=== PATIENT | male | born 1990 | race Caucasian/White ===

== ENCOUNTER → 2020-06-26 16:28 | Outpatient (BNVA) | payer SELFPAY | PROVIDERS: Family Provider Internal Medicine; PCP Internal Medicine; Visit Provider Internal Medicine | DX: G72.3 Periodic paralysis (principal) | CPT/HCPCS: 80053 ==

== ENCOUNTER → 2021-03-05 13:19 | Outpatient (BNVA) | payer OTHER, SELFPAY | PROVIDERS: Family Provider Internal Medicine; PCP Internal Medicine; Visit Provider Nurse Practitioner Family | DX: R11.2 Nausea with vomiting, unspecified (principal); A08.4 Viral intestinal infection, unspecified | CPT/HCPCS: 80053; 81000; 85025 ==

== ENCOUNTER 2022-05-19 15:08 | Inpatient (IN) | payer OTHER, SELFPAY ==
[2022-05-19] VITALS (7 sets, daily range): BP systolic 118–132; BP diastolic 65–86; PULSE 82–105; RESP 16–20; TEMP 37.2–37.4; O2SAT 92–97; BMI 23.6
[2022-05-19 17:16] LABS: Add Urine Microscopic? NO; Charge for UA Resulting for Rev
[2022-05-19 17:29] LABS: Bilirubin Urine Neg (Negative); Blood Urine Neg (Negative); Glucose Urine UA Norm (Normal); Ketones Urine Negative (Negative); Nitrate Urine Negative (Negative); Protein Urine Neg (Negative); Urine Appearance Clear (CLEAR); Urine Color Dark Yellow (Yellow); Urobilinogen Urine 1 mg/dL (Negative); pH Urine 8 (5-7)
[2022-05-19 17:30] LABS: Leukocyte Esterase Urine Negative (Negative)
[2022-05-19 17:45] LABS: Basophils # 0.1 10^3/uL (0.0-0.1); Basophils % 0.3 %; Eosinophils # 0.1 10^3/uL (0.0-0.8); Eosinophils % 0.3 %; Hematocrit 44.2 % (42.0-52.0); Hemoglobin 15.1 g/dL (11.7-16.6); Lymphocytes # 1.1 10^3/uL (0.8-4.8); Lymphocytes % 5.8 %; Mean Corpuscular HGB Conc 34.2 g/dL (30.0-36.0); Mean Corpuscular Hemoglobin 30.8 pg (28.0-34.0); Mean Platelet Volume 10.3 fL (7.4-10.4); Monocytes # 0.7 10^3/uL (0.2-0.9); Monocytes % 3.9 %; Neutrophils # 16.13 10^3/uL (1.8-7.7); Neutrophils % 88.9 %; Nucleated Red Blood Cells % 0 %; Platelet Count 239 10^3/cmm (130-400); Red Blood Count 4.91 10^6/uL (4.1-5.3); Red Cell Distribution Width 13.1 % (12.1-15.1); White Blood Count 18.2 10^3/uL (4.0-10.0)
[2022-05-19 18:07] LABS: Alanine Aminotransferase 16 U/L (0-41); Albumin Level 3.9 g/dL (3.5-5.2); Alkaline Phosphatase 87 U/L (40-130); Anion Gap 14.2 (5-19); Aspartate Amino Transferase 20 U/L (0-40); Blood Urea Nitrogen 18 mg/dL (6-20); C Reactive Protein 54.8 mg/L (0.0-4.9); Calcium 8.9 mg/dL (8.5-10.5); Carbon Dioxide 19 mmol/L (22-29); Chloride 100 mmol/L (98-107); Globulin 3.2 g/dL (1.3-4.6); Glomerular Filtration Rate 129.9 mL/min (90-130); Glucose 160 mg/dL (65-115); Lipase 27 U/L (13-60); Osmolality Calculated 275 mOsm/kg (285-295); Potassium 3.2 mmol/L (3.5-5.1); Sodium 130 mmol/L (136-145); Total Protein 7.1 g/dL (6.6-8.7)
--- NOTE | 2022-05-19 18:13 | CTR_ITS ---
PROCEDURE INFORMATION: Exam: CT Abdomen And Pelvis With Contrast Exam date and time: 05/19/2022 6:56 PM Age: 31 years old Clinical indication: Abdominal pain; Generalized; Additional info: Abd pain TECHNIQUE: Imaging protocol: Computed tomography of the abdomen and pelvis with contrast. Radiation optimization: All CT scans at this facility use at least one of these dose optimization techniques: automated exposure control; mA and/or kV adjustment per patient size (includes targeted exams where dose is matched to clinical indication); or iterative reconstruction. Contrast material: OMNI 350; Contrast volume: 100 ml; Contrast route: INTRAVENOUS (IV); COMPARISON: CT abdomen pelvis w con* [id number] 10/30/2018 10:56 AM RADIATION DOSE METRICS: Total DLP (mGy-cm): 393.73 FINDINGS: Liver: 9 mm low-density left hepatic lobe lesion is similar to the prior study. This cannot be further characterized on this study. Gallbladder and bile ducts: Normal. No calcified stones. No ductal dilation. Pancreas: Normal. No ductal dilation. Spleen: Normal. No splenomegaly. Adrenal glands: Normal. No mass. Kidneys and ureters: There is a sub cm cyst with benign features in the right kidney. Follow-up is not necessary. Stomach and bowel: There is mucosal thickening of the distal ileum and rectosigmoid colon with associated mesenteric inflammatory stranding. There are peripherally enhancing complex fluid collections along the left and right lateral aspects of the sigmoid mucosa measuring 16 mm and 14 mm respectively in the craniocaudad dimensions. A peripherally enhancing fluid collection is present posterior to the distal ileum measuring 3.3 by 2.3 cm. These are concerning for abscess formations. Appendix: No evidence of appendicitis. Intraperitoneal space: See Stomach and bowel finding. Vasculature: Unremarkable. No abdominal aortic aneurysm. Lymph nodes: Unremarkable. No enlarged lymph nodes. Urinary bladder: Unremarkable as visualized. Reproductive: Unremarkable as visualized. Bones/joints: Unremarkable. No acute fracture. Soft tissues: Unremarkable. CT/CT abdomen pelvis w con* [id number] IMPRESSION: 1. There is mucosal thickening of the distal ileum and rectosigmoid colon with associated mesenteric inflammatory stranding consistent with a nonspecific enteritis. Crohn's disease is the top differential given the sites of mucosal thickening. 2. Peripherally enhancing complex fluid collections along the left and right lateral aspects of the sigmoid mucosa and posterior to the distal ileum raise concern for abscess formations. COMMENTS: Consistent with the [employer]'s Incidental Findings Committee white paper (J Am Odalis Radiol 2018): Any incidental renal lesion less than 1 cm or classified as too small to characterize, or any incidental cystic renal lesion characterized as simple-appearing, is likely benign. No follow-up imaging is recommended for these lesions per consensus recommendations based on imaging criteria.
[2022-05-19] MEDS: potassium chloride ER 20 mEq Tablet 40 MEQ PO (18:20)
[2022-05-19] MEDS: morphine 4 mg/mL SDV 1 mL IVP (18:20)
[2022-05-19] MEDS: ondansetron 2 mg/ML SDV 2 mL 4 MG IVP (18:20)
[2022-05-19] MEDS: sodium chloride 0.9% 1,000 ML 999 ML IV (18:25)
--- NOTE | 2022-05-19 18:40 | ED_ITS ---
HPI - Abdominal Pain General: Chief Complaint: Abdominal Pain Stated Complaint: UC sent for stomach flare up Time Seen by Provider: 05/19/22 18:07 Source: patient History of Present Illness: 31-year-old male with a history of diverticulitis. He notes that around 11 PM last night, he started to get left lower quadrant belly pain. It worsened today despite warm baths, and pain medication. He has had some diarrhea. No blood in the stool. He had a temperature at urgent care. MD elicited complaint: abdominal pain Pertinent past history: other Pain Consistency: constant Location: LLQ Severity: moderate Radiation: none Migration to: no migration Relieving factors: nothing Associated Symptoms: Reports change in stool character, diarrhea, fever(s) and nausea; Denies constipation, dysuria, hematuria and vomiting Review of Systems Const: Reports: fever(s) Eyes: Denies: change in vision Card: Denies: chest pain or palpitations Resp: Denies: dyspnea, productive cough, non-productive cough or wheezing GI: Reports: nausea, diarrhea and change in stool character; Denies: vomiting or constipation : Denies: dysuria or hematuria Skin/Breast: Denies: rash Neuro: Denies: headache(s), weakness in extremities, dizziness or confusion PFSH ED PFSH: Medical History Hypokalemic periodic paralysis Family History Grandmother Diabetes Cancer Father Heart disease Mother Heart disease Social History Smoking and tobacco status: current every day smoker (vape) e-cigarettes E- Cigarette Details: vaporizer device and with nicotine E-cig/vape details: approx 9 months and smokeless tobacco Smokeless tobacco details: can per week x 10 yrs Second hand smoke exposure: No Alcohol intake: current Alcohol intake frequency: few times a month Alcohol type: hard liquor Lives independently: No Household members: family Marital status: Number of children: 2 service: No Current occupational status: employed Current occupation: [employer] History of recent travel: No Current gender identity: Male Special gem needs: No Agree to transfusion: Yes Physical Exam Const: COMMON NORMALS: no acute distress GENERAL APPEARANCE: cooperative; not ill appearing and not frail appearing HENMT: COMMON NORMALS: normocephalic, atraumatic and Normal external nose present HEAD & SCALP: normocephalic and atraumatic FACE & SINUS: normal facial exam and face symmetric NOSE: Normal external nose present Eye: COMMON NORMALS: Equal, round and reactive pupils present and EOMs intact bilaterally PUPIL: Yes Equal, round and reactive pupils present Neck/C-Spine: GENERAL: Yes trachea midline Chest: CHEST: Yes Symmetrical chest wall rise Resp: COMMON NORMALS: normal respiratory effort, No retractions, No use of accessory muscles and clear to auscultation bilaterally AUSCULTATION: clear to auscultation bilaterally Cardio: COMMON NORMALS: regular rate and regular rhythm RATE: regular rate RHYTHM: regular rhythm GI: COMMON NORMALS: Normal to inspection, nondistended, normoactive bowel sounds present PALPATION: Yes Tenderness to palpation present (GI) Details: LLQ and Yes Guarding due to palpation present (GI) : COMMON NORMALS: Yes no CVA tenderness BLADDER/KIDNEY EXAM: Yes no CVA tenderness Back/Pelvis: COMMON NORMALS: no CVA tenderness Extremity: COMMON NORMALS: no pedal edema Neuro: JOANIE COMA SCALE: document GCS findings [place] coma scale eye opening: Spontaneous Joanie coma scale verbal response: Orientated [place] coma scale motor response: Obey commands Joanie coma scale total score: 15 SENSORY EXAM: Yes extremities (intact) Psych: COMMON NORMALS: speech normal SPEECH: Yes normal speech Skin: COMMON NORMALS: no rashes or lesions noted GENERAL SKIN EXAM: no rashes or lesions noted Course Vital Signs: Vital signs: Vital Signs Temperature 99 F 05/19/22 16:02 Pulse Rate 105 H 05/19/22 19:30 Respiratory Rate 18 05/19/22 19:30 Blood Pressure 129/65 05/19/22 19:30 Pulse Oximetry 97 05/19/22 19:30 Oxygen Delivery Me thod 05/19/22 16:02 MDM - Abdominal Pain Medical Decision Making White blood cell count is 18. Potassium is 3.2 and is repleted. Bicarbonate is 19. He is received IV fluid in the ER. His CT shows mucosal thickening of the distal ileum and rectosigmoid colon. There are peripherally enhancing complex fluid collections along the left and right and lateral aspects of the sigmoid mucosa and posterior to the distal ileum concerning for small abscesses. These are too small for IR intervention. He will be treated medically for now. Hospitalist will see the patient. He has gotten IV Zosyn here. He is normotensive and nontachycardic. Lab Data : 05/19/22 17:26 05/19/22 17:26 Labs/Radiology: Radiology Impressions Abdomen/Pelvis CT 05/19/22 18:13 IMPRESSION: 1. There is mucosal thickening of the distal ileum and rectosigmoid colon with associated mesenteric inflammatory stranding consistent with a nonspecific enteritis. Crohn's disease is the top differential given the sites of mucosal thickening. 2. Peripherally enhancing complex fluid collections along the left and right lateral aspects of the sigmoid mucosa and posterior to the distal ileum raise concern for abscess formations. COMMENTS: Consistent with the [employer]'s Incidental Findings Committee white paper (J Am Odalis Radiol 2018): Any incidental renal lesion less than 1 cm or classified as too small to characterize, or any incidental cystic renal lesion characterized as simple-appearing, is likely benign. No follow-up imaging is recommended for these lesions per consensus recommendations based on imaging criteria. ADDENDUM: 05/19/221947 CRITICAL RESULT: The study was personally discussed on the telephone with ANASTASIIA Slater on 05/19/2022 7:46 PM CDT. The results were understood and acknowledged. Laboratory Results WBC 18.2 10^3/uL (4.0-10.0) H 05/19/22 17: RBC 4.91 10^6/uL (4.1-5.3) 05/19/22 17: Hgb 15.1 g/dL (11.7-16.6) 05/19/22 17: Hct 44.2 % (42.0-52.0) 05/19/22 17: MCV 90.0 fl (80-94) 05/19/22 17: MCH 30.8 pg (28.0-34.0) 05/19/22 17: MCHC 34.2 g/dL (30.0-36.0) 05/19/22 17: RDW 13.1 % (12.1-15.1) 05/19/22 17: Plt Count 239 10^3/cmm (130-400) 05/19/22 17: MPV 10.3 fL (7.4-10.4) 05/19/22 17: Neut % (Auto) 88.9 % 05/19/22 17: Lymph % (Auto) 5.8 % 05/19/22 17: [place] % (Auto) 3.9 % 05/19/22 17: Eos % (Auto) 0.3 % 05/19/22 17: Baso % (Auto) 0.3 % 05/19/22 17: Neut # (Auto) 16.13 10^3/uL (1.8-7.7) H 05/19/22 17: Lymph # (Auto) 1.1 10^3/uL (0.8-4.8) 05/19/22 17: [place] # (Auto) 0.7 10^3/uL (0.2-0.9) 05/19/22 17: Eos # (Auto) 0.1 10^3/uL (0.0-0.8) 05/19/22 17: Baso # (Auto) 0.1 10^3/uL (0.0-0.1) 05/19/22 17: Nucleated RBC % (auto) 0 % 05/19/22 17: Nucleated RBCs # 0.0 /100WBC 05/19/22 17:26 Sodium 130 mmol/L (136-145) L 05/19/22 17:26 Potassium 3.2 mmol/L (3.5-5.1) L 05/19/22 17: Chloride 100 mmol/L (98-107) 05/19/22 17: Carbon Dioxide 19 mmol/L (22-29) L 05/19/22 17:26 Anion Gap 14.2 (5-19) 05/19/22 17:26 BUN 18 mg/dL (6-20) 05/19/22 17: Creatinine 0.7 mg/dL (0.7-1.2) 05/19/22 17: GFR Calculation 129.9 mL/min (90-130) 05/19/22 17:26 Glucose 160 mg/dL (65-115) H 05/19/22 17:26 Calculated Osmolality 275 mOsm/kg (285-295) L 05/19/22 17:26 Calcium 8.9 mg/dL (8.5-10.5) 05/19/22 17:26 Total Bilirubin 1.0 mg/dL (0.15-1.2) 05/19/22 17:26 AST 20 U/L (0-40) 05/19/22 17:26 ALT 16 U/L (0-41) 05/19/22 17:26 Alkaline Phosphatase 87 U/L (40-130) 05/19/22 17:26 C-Reactive Protein 54.8 mg/L (0.0-4.9) H 05/19/22 17:26 Total Protein 7.1 g/dL (6.6-8.7) 05/19/22 17:26 Albumin 3.9 g/dL (3.5-5.2) 05/19/22 17:26 Globulin 3.2 g/dL (1.3-4.6) 05/19/22 17:26 Lipase 27 U/L (13-60) 05/19/22 17:26 Urine Color Dark yellow (Yellow) 05/19/22 17:10 Urine Appearance Clear (CLEAR) 05/19/22 17:10 Urine pH 8 (5-7) H 05/19/22 17:10 Ur Specific [place] 1.010 (1.005-1.030) 05/19/22 17:10 Urine Protein Neg (Negative) 05/19/22 17:10 Urine Glucose (UA) Norm (Normal) 05/19/22 17:10 Urine Ketones Negative (Negative) 05/19/22 17:10 Urine Blood Neg (Negative) 05/19/22 17:10 Urine Nitrate Negative (Negative) 05/19/22 17:10 Urine Bilirubin Neg (Negative) 05/19/22 17:10 Urine Urobilinogen 1 mg/dL (Negative) H 05/19/22 17:10 Ur Leukocyte Esterase Negative (Negative) 05/19/22 17:10 Discharge Plan Discharge Patient Disposition: Admitted As Inpatient Clinical Impression: Colitis, Abscess of sigmoid colon Condition: Fair Coding Level of Care Code ED Wire Chief for Chandnig Fwd Exam Comprehensive
[2022-05-19] MEDS: iohexol 350 mg/mL 100 mL Btl IV (18:59)
[2022-05-19] MEDS: piperacillin-tazobactam 3.375 GM in sodium chloride 0.9% (plus) 50 ML IV (20:22)
--- NOTE | 2022-05-19 21:39 | P.HP_ITS ---
Providers/Chief Complaint Admitting Physician: Gema Peraza MD Primary Care Provider: French Kwan MD Chief Complaint: UC sent for stomach flare up History of Present Illness Trent Marshall is a 31 year old male past medical history of hypokalemic periodic paralysis, presenting today to the emergency room with left lower quadrant abdominal pain that started last night. Initially pain started at 11 PM. No obvious trigger or relieving factors. Noother sick contacts. He has had some associated diarrhea 10-11 episodes. No blood in stools, mucus+. no nausea, vomiting. Reports a past history of diverticulitis 3 years ago. No follow up colonoscopy perfromed,, No family h/o IBD or other inflammatory conditions. Review of Systems General: Reports: 10 or more systems reviewed and unremarkable except in HPI and below Const: Denies: fever(s), chills or body aches Eyes: Denies: change in vision, blurry vision or photophobia ENMT: Reports: hoarseness; Denies: throat pain, enlarged tonsils, odynophagia or nasal congestion Card: Denies: chest pain, palpitations, irregular heart rhythm, edema, swelling of feet/ankles, lightheadedness, pre-syncope, dyspnea on exertion or or thopnea Resp: Denies: dyspnea, productive cough, non-productive cough, wheezing, stridor, pain on inspiration, change in phlegm color, hemoptysis or chest congestion GI: Denies: abdominal pain, nausea, vomiting, hematemesis, coffee ground e mesis, dysphagia, heartburn, diarrhea, constipation, GI cramping, change in stool character, hematochezia or melena : Denies: flank pain, dysuria, urinary frequency, urinary urgency, urinary hesitancy or hematuria Musc: Denies: neck pain, back pain, extremity pain, joint swelling, joint warmth or deformity Neuro: Denies: headache(s), numbness in extremities, weakness in extremities, sensory changes, difficulty walking, frequent falls, dizziness, vertigo, behavioral changes, Slurred speech present or seizure-like activity Psych: Denies: anxiety, depression, suicidal ideation or homicidal ideation Endo: Denies: polyuria, polydipsia, tired all the time, cold intolerance or hot flashes Andre/Lymph: Denies: easy bruising or easy bleeding Medications/Allergies Home Medications Medication Instructions Recorded Confirmed Last Taken Type spironolactone 25 mg tablet 25 mg PO DAILY 05/19/22 05/19/22 05/18/22 History Allergies Allergy/AdvReac Type Severity Reaction Status Date / Time No Known Allergies Allergy Verified 05/19/22 14:09 PFSH Acute PFSH: Medical History Hypokalemic periodic paralysis Family History Grandmother Diabetes Cancer Father Heart disease Mother Heart disease Social History Smoking and tobacco status: current every day smoker (vape) e-cigarettes E- Cigarette Details: vaporizer device and with nicotine E-cig/vape details: approx 9 months and smokeless tobacco Smokeless tobacco details: can per week x 10 yrs Second hand smoke exposure: No Alcohol intake: current Alcohol intake frequency: few times a month Alcohol type: hard liquor Lives independently: No Household members: family Marital status: Number of children: 2 service: No Current occupational status: employed Current occupation: [employer] History of recent travel: No Current gender identity: Male Special gem needs: No Agree to transfusion: Yes Vitals/I&O/Wt Last Vital Signs Temp 99.4 F 05/19/22 20:54 Pulse 86 05/19/22 20:54 Resp 20 H 05/19/22 20:54 BP 118/67 05/19/22 20:54 Pulse Ox 97 05/19/22 20:54 O2 Del Method 05/19/22 20:46 Weight last 48 hrs Weight 64.41 kg Physical Exam Narrative: General: No acute distress, AO x3 HEENT: PERRLA, pupils bilaterally equal and reactive, pallors not present Chest: Normal vesicular breath sounds, no added sounds, equal good air entry bilaterally CVS: S1-S2 regular, no murmurs, no tachycardia, no gallops, no rubs Abdomen: Soft, mildly distended, TTP over LLQ region Neuro: No focal deficits, no facial deformity, AO x3, power 5/5 in all limbs Data : 05/20/22 03:45 05/20/22 03:45 Other Labs: Radiology Impressions Abdomen/Pelvis CT 05/19/22 18:13 IMPRESSION: 1. There is mucosal thickening of the distal ileum and rectosigmoid colon with associated mesenteric inflammatory stranding consistent with a nonspecific enteritis. Crohn's disease is the top differential given the sites of mucosal thickening. 2. Peripherally enhancing complex fluid collections along the left and right lateral aspects of the sigmoid mucosa and posterior to the distal ileum raise concern for abscess formations. COMMENTS: Consistent with the [employer]'s Incidental Findings Committee white paper (J Am Odalis Radiol 2018): Any incidental renal lesion less than 1 cm or classified as too small to characterize, or any incidental cystic renal lesion characterized as simple-appearing, is likely benign. No follow-up imaging is recommended for these lesions per consensus recommendations based on imaging criteria. ADDENDUM: 05/19/221947 CRITICAL RESULT: The study was personally discussed on the telephone with ANASTASIIA Slater on 05/19/2022 7:46 PM CDT. The results were understood and acknowledged. Laboratory Results WBC 18.2 10^3/uL (4.0-10.0) H 05/19/22 17: RBC 4.91 10^6/uL (4.1-5.3) 05/19/22 17:26 Hgb 15.1 g/dL (11.7-16.6) 05/19/22 17:26 Hct 44.2 % (42.0-52.0) 05/19/22 17:26 MCV 90.0 fl (80-94) 05/19/22 17: MCH 30.8 pg (28.0-34.0) 05/19/22 17: MCHC 34.2 g/dL (30.0-36.0) 05/19/22 17:26 RDW 13.1 % (12.1-15.1) 05/19/22 17:26 Plt Count 239 10^3/cmm (130-400) 05/19/22 17: MPV 10.3 fL (7.4-10.4) 05/19/22 17:26 Neut % (Auto) 88.9 % 05/19/22 17: Lymph % (Auto) 5.8 % 05/19/22 17:26 [place] % (Auto) 3.9 % 05/19/22 17:26 Eos % (Auto) 0.3 % 05/19/22 17:26 Baso % (Auto) 0.3 % 05/19/22 17:26 Neut # (Auto) 16.13 10^3/uL (1.8-7.7) H 05/19/22 17:26 Lymph # (Auto) 1.1 10^3/uL (0.8-4.8) 05/19/22 17:26 [place] # (Auto) 0.7 10^3/uL (0.2-0.9) 05/19/22 17:26 Eos # (Auto) 0.1 10^3/uL (0.0-0.8) 05/19/22 17:26 Baso # (Auto) 0.1 10^3/uL (0.0-0.1) 05/19/22 17: Nucleated RBC % (auto) 0 % 05/19/22 17: Nucleated RBCs # 0.0 /100WBC 05/19/22 17:26 Sodium 130 mmol/L (136-145) L 05/19/22 17:26 Potassium 3.2 mmol/L (3.5-5.1) L 05/19/22 17:26 Chloride 100 mmol/L (98-107) 05/19/22 17:26 Carbon Dioxide 19 mmol/L (22-29) L 05/19/22 17:26 Anion Gap 14.2 (5-19) 05/19/22 17:26 BUN 18 mg/dL (6-20) 05/19/22 17:26 Creatinine 0.7 mg/dL (0.7-1.2) 05/19/22 17:26 GFR Calculation 129.9 mL/min (90-130) 05/19/22 17:26 Glucose 160 mg/dL (65-115) H 05/19/22 17:26 Calculated Osmolality 275 mOsm/kg (285-295) L 05/19/22 17:26 Calcium 8.9 mg/dL (8.5-10.5) 05/19/22 17:26 Total Bilirubin 1.0 mg/dL (0.15-1.2) 05/19/22 17:26 AST 20 U/L (0-40) 05/19/22 17:26 ALT 16 U/L (0-41) 05/19/22 17:26 Alkaline Phosphatase 87 U/L (40-130) 05/19/22 17:26 C-Reactive Protein 54.8 mg/L (0.0-4.9) H 05/19/22 17:26 Total Protein 7.1 g/dL (6.6-8.7) 05/19/22 17:26 Albumin 3.9 g/dL (3.5-5.2) 05/19/22 17:26 Globulin 3.2 g/dL (1.3-4.6) 05/19/22 17:26 Lipase 27 U/L (13-60) 05/19/22 17:26 Urine Color Dark yellow (Yellow) 05/19/22 17:10 Urine Appearance Clear (CLEAR) 05/19/22 17:10 Urine pH 8 (5-7) H 05/19/22 17:10 Ur Specific [place] 1.010 (1.005-1.030) 05/19/22 17:10 Urine Protein Neg (Negative) 05/19/22 17:10 Urine Glucose (UA) Norm (Normal) 05/19/22 17:10 Urine Ketones Negative (Negative) 05/19/22 17:10 Urine Blood Neg (Negative) 05/19/22 17:10 Urine Nitrate Negative (Negative) 05/19/22 17:10 Urine Bilirubin Neg (Negative) 05/19/22 17:10 Urine Urobilinogen 1 mg/dL (Negative) H 05/19/22 17:10 Ur Leukocyte Esterase Negative (Negative) 05/19/22 17:10 A&P Assessment and plan (1) Colitis: (2) Abscess of sigmoid colon: Plan 31-year-old male presenting today with left lower quadrant pain, with evidence of enteritis, sigmoid colitis and intra-abdominal abscess formation, 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 Currently differential diagnosis include inflammatory bowel disease such as Crohn's versus UC given young age, recurrent episodes, involvement of both small and large bowel. To evaluate for possible infective colitis, will check enteric bacterial PCR panel and C. difficile PCR., Given currently intra-abdominal abscesses, will start broad-spectrum antibiotic coverage with piperacillin tazobactam. N.p.o. for bowel rest IV fluid D5 normal saline at 75 cc/h. History of hypokalemic periodic paralysis, currently potassium at 3.2, supplement IV and As needed Tylenol for fever As needed morphine and Toradol alternating for pain management. We will start with medical management currently, surgical consult in the morning. Attestations Medical Necessity Statement*: Anticipate greater than 2 midnight admission for colitis, likely perforation with intra-abdominal abscess, need for IV anti biotics and IV hydration. Coding Level of Care Code Acute Load Planner for Jasmin Julian Diagnoses Colitis K52.9 Abscess of sigmoid colon K63.0
[2022-05-19] MEDS: dextrose 5%-sod chloride 0.9% 1,000 ML 75 ML IV (22:27)
[2022-05-19] MEDS: enoxaparin 40 mg/0.4 mL Syringe SUBCUT (22:28)
[2022-05-19] MEDS: piperacillin-tazobactam 3.375 GM in sodium chloride 0.9% (plus) 50 ML 12.5 GM PHA2DOSE (22:29)
[2022-05-19] MEDS: famotidine 20 mg/2 mL INJ IVP (22:36)
[2022-05-19] MEDS: morphine 4 mg/mL SDV 1 mL 2 MG IVP (22:36)
[2022-05-20] VITALS (8 sets, daily range): BP systolic 106–125; BP diastolic 61–68; PULSE 65–84; RESP 16–24; TEMP 36.7–37.2; O2SAT 96–98
[2022-05-20] MEDS: ketorolac 30 mg/mL INJ 15 MG IVP ×2 (03:50→16:51)
[2022-05-20 04:55] LABS: Basophils # 0.1 10^3/uL (0.0-0.1); Basophils % 0.4 %; Eosinophils % 0.1 %; Hematocrit 41.6 % (42.0-52.0); Hemoglobin 13.4 g/dL (11.7-16.6); Lymphocytes # 2.6 10^3/uL (0.8-4.8); Lymphocytes % 21.3 %; Mean Corpuscular HGB Conc 32.2 g/dL (30.0-36.0); Mean Corpuscular Hemoglobin 30.7 pg (28.0-34.0); Mean Corpuscular Volume 95.2 fl (80-94); Mean Platelet Volume 10.2 fL (7.4-10.4); Monocytes # 0.6 10^3/uL (0.2-0.9); Monocytes % 5.1 %; Neutrophils # 8.89 10^3/uL (1.8-7.7); Neutrophils % 72.7 %; Nucleated Red Blood Cells % 0 %; Platelet Count 208 10^3/cmm (130-400); Red Blood Count 4.37 10^6/uL (4.1-5.3); Red Cell Distribution Width 13.3 % (12.1-15.1); White Blood Count 12.2 10^3/uL (4.0-10.0)
[2022-05-20 05:18] LABS: Alanine Aminotransferase 12 U/L (0-41); Albumin Level 3.1 g/dL (3.5-5.2); Alkaline Phosphatase 75 U/L (40-130); Anion Gap 12.5 (5-19); Aspartate Amino Transferase 14 U/L (0-40); Blood Urea Nitrogen 16 mg/dL (6-20); Calcium 8.2 mg/dL (8.5-10.5); Carbon Dioxide 19 mmol/L (22-29); Chloride 104 mmol/L (98-107); Globulin 2.7 g/dL (1.3-4.6); Glomerular Filtration Rate 111.3 mL/min (90-130); Glucose 98 mg/dL (65-115); Osmolality Calculated 275 mOsm/kg (285-295); Potassium 3.5 mmol/L (3.5-5.1); Sodium 132 mmol/L (136-145); Total Bilirubin 1.8 mg/dL (0.15-1.2); Total Protein 5.8 g/dL (6.6-8.7)
[2022-05-20] MEDS: famotidine 20 mg/2 mL INJ IVP ×2 (09:49→20:48)
[2022-05-20] MEDS: morphine 4 mg/mL SDV 1 mL 2 MG IVP ×2 (09:58→20:49)
[2022-05-20] MEDS: dextrose 5%-sod chloride 0.9% 1,000 ML 75 ML IV (11:54)
--- NOTE | 2022-05-20 12:02 | P.PN_ITS ---
Subjective Subjective: H&P and labs appreciated. On examination patient in comfortably in bed. Still complaining of abdominal pain. Not passing gas. Denies any nausea, vomiting, headache. Vitals/I&O/Wt Last Vital Signs Temp 98.2 F 05/20/22 08:00 Pulse 65 05/20/22 08:00 Resp 16 05/20/22 09:58 BP 112/64 05/20/22 08:00 Pulse Ox 98 05/20/22 08:00 O2 Del Method 05/20/22 08:00 05/19/22 05/20/22 05/20/22 22:59 06:59 14:59 Intake Total 1050 / 1050 50 / 1100 1000 / 1000 Output Total 500 / 500 Balance 1050 / 1050 -450 / 600 1000 / 1000 Weight last 48 hrs Weight 64.41 kg Physical Exam Narrative: General: No acute distress, AO x3 HEENT: PERRLA, pupils bilaterally equal and reactive, pallors not present Chest: Normal vesicular breath sounds, no added sounds, equal good air entry bilaterally CVS: S1-S2 regular, no murmurs, no tachycardia, no gallops, no rubs Abdomen: Soft, mildly distended, TTP over LLQ region Neuro: No focal deficits, no facial deformity, AO x3, power 5/5 in all limbs Data : 05/20/22 03:45 05/20/22 03:45 A&P Assessment and plan (1) Colitis: Given history, age and recurrence along with CT scan high chances of inflammatory bowel disease such as Crohn's versus ulcerative colitis. Will order ESR and CRP currently as they would be high given the infection. Patient would need colonoscopy as an outpatient once the acute event that was found. Check stool studies. Conservative treatment with bowel rest. Fluid resuscitation with D5 NS at 75 cc/h. Continue empiric Zosyn for now. (2) Abscess of sigmoid colon: Appreciate surgical recommendations. Recommend possible IR drainage. Case discussed with radiology. More than abscess the collection is consistent with phlegmon. For now we will plan to continue with IV antibiotics and depending on clinical picture going forward we will plan for repeat imaging in few days. Plan Check urine drug screen, iron panel, vitamin B12, folate level, A1c, lipid panel. Full code. Heparin for DVT prophylaxis Early ambulation. NPO. Protonix for PUD prophylaxis Attestations Medical Necessity Statement*: Requires further hospitalization for management of colitis, localized sigmoid/ileum contained perforation with early abscess formation Time Spent in Patient Care: Greater than 35 minutes Coding Level of Care Code Acute Telephone Directory Deliverer for Jasmin Julian Diagnoses Colitis K52.9 Abscess of sigmoid colon K63.0
[2022-05-20 12:47] LABS: Iron 32 ug/dL (59-158); Percent Saturation 12.9 % (20-50); Total Iron Binding Capacity 248 mcg/dl; Unsaturated Iron Binding 216 ug/dL (112-347)
[2022-05-20 13:05] LABS: Thyroid Stimulating Hormone 3.41 uIU/mL (0.27-4.20); Vitamin B12 429 pg/mL (232-1245)
[2022-05-20 15:34] LABS: Folate Level 9.3 ng/mL (4.5-32.2)
--- NOTE | 2022-05-20 15:37 | PM.CONSULT ---
Providers/Reason For Consult Consulting Physician/Specialty*: Dr. Edgar Cruz, DO/General surgery Reason for Consult*: Intra-abdominal abscesses Attending Physician: Zaheer Alanis MD Primary Care Provider: French Kwan MD History of Present Illness History of Present Illness Trent Marshall is a 31 year old male, with a history of diverticulitis in the past, who presents to the hospital with left lower quadrant abdominal pain that began the night before last. The pain is sharp and constant. Palpation makes pain worse. Nothing makes pain better. Denies any hematochezia or melena but is having loose stools. Denies any nausea or vomiting. He did not get a colonoscopy after his last episode of diverticulitis. A CT of the abdomen shows possible small fluid collections on either side of the sigmoid colon. Review of Systems General: Reports: 10 or more systems reviewed and unremarkable except in HPI and below Medications/Allergies Home Medications Medication Instructions Recorded Confirmed Last Taken Type spironolactone 25 mg tablet 25 mg PO DAILY 05/19/22 05/19/22 05/18/22 History Allergies Allergy/AdvReac Type Severity Reaction Status Date / Time No Known Allergies Allergy Verified 05/19/22 14:09 Current Medications Generic Name Dose Route Start Last Admin Trade Name Freq PRN Reason Stop Dose Admin Enoxaparin Sodium 40 mg 05/19/22 21:45 05/19/22 22:28 Enoxaparin 40 Mg/0.4 Ml Syringe SUBCUT 40 mg Q24H CRISTIAN Administration Famotidine 20 mg 05/19/22 21:45 05/20/22 09:49 Famotidine 20 Mg/2 Ml Inj IVP 20 mg Q12H CRISTIAN Administration Dextrose/Sodium Chloride 1,000 mls @ 75 mls/hr 05/19/22 21:45 05/20/22 11:54 Dextrose 5%-Sod Chloride 0.9% IV 75 mls/hr .[id number] CRISTIAN Administration Piperacillin Sod/Tazobactam 50 mls @ 0 mls/hr 05/19/22 21:45 05/20/22 02:07 Sod 3.375 gm/ Sodium Chloride [id number] Infused CONT CRISTIAN Infusion Protocol As Directed Ketorolac Tromethamine 15 mg 05/19/22 21:31 05/20/22 03:50 Ketorolac 30 Mg/Ml Inj IVP 05/24/22 21:30 15 mg Q8H PRN Administration MODERATE PAIN Morphine Sulfate 2 mg 05/19/22 21:31 05/20/22 09:58 Morphine 4 Mg/Ml Sdv 1 Ml IVP 2 mg Q4H PRN Administration SEVERE PAIN PFSH Acute PFSH: Medical History Hypokalemic periodic paralysis Family History Grandmother Diabetes Cancer Father Heart disease Mother Heart disease Social History Smoking and tobacco status: current every day smoker (vape) e-cigarettes E-Cigarette Details: vaporizer device and with nicotine E-cig/vape details: approx 9 months and smokeless tobacco Smokeless tobacco details: can per week x 10 yrs Second hand smoke exposure: No Alcohol intake: current Alcohol intake frequency: few times a month Alcohol type: hard liquor Lives independently: No Household members: family Marital status: Number of children: 2 service: No Current occupational status: employed Current occupation: [employer] History of recent travel: No Current gender identity: Male Special gem needs: No Agree to transfusion: Yes Vitals/I&O/Wt Last Vital Signs Temp 98.0 F 05/20/22 12:00 Pulse 66 05/20/22 12:00 Resp 16 05/20/22 12:00 BP 125/66 05/20/22 12:00 Pulse Ox 98 05/20/22 12:00 O2 Del Method 05/20/22 12:00 05/20/22 05/20/22 05/20/22 06:59 14:59 22:59 Intake Total 50 / 1100 1000 / 1000 Output Total 500 / 500 Balance -450 / 600 1000 / 1000 Weight last 48 hrs Weight 142 lb Physical Exam Narrative: General : Patient is well developed , no acute distress, oriented x3 Head : Normal cephalic, a-traumatic. Ears : Pinnae and external canal are normal. Hearing is normal. Eyes : PERRLA, Sclera and injection are normal. No conjunctival discharge. Nose : Mucous membranes are without erythema. Throat : buccal mucosa is normal, gums are without significant recession or hypertrophy. Lungs : Equal chest rise bilaterally, no use of accessory muscles, trachea is midline. Cor : Rate and rhythm are normal. Abdomen : Soft, ND, mild left lower quadrant tenderness, no g/r/m Extremities : No edema, no cyanosis or clubbing, dorsalis pedis pulses are present bilaterally, non-tender to palpation of calves. Upper extremities are normal bilaterally. Back : non-tender to palpation, no CVA tenderness. Neuro : CN II - XII intact, Upper and lower extremities have equal and full strength Data : 05/20/22 03:45 05/20/22 03:45 A&P Assessment and plan (1) Abscess of sigmoid colon: Plan It is difficult to say if this is due to diverticulitis with possible small perforations or inflammatory bowel disease versus some other infectious etiology. There is not a significant fluid collection to be drained by IR at this time. Antibiotics Pain control IV fluids N.p.o. No acute surgical intervention at this time. We likely will need to rescan him prior to discharge He needs a follow-up colonoscopy in 6 to 8 weeks thank you for this consultation Coding Level of Care Code Acute Utility Bill Complaints Investigator for Jasmin Julian Diagnoses Abscess of sigmoid colon K63.0
[2022-05-20] MEDS: piperacillin-tazobactam 3.375 GM in sodium chloride 0.9% (plus) 50 ML 12.5 GM PHA2DOSE (20:47)
[2022-05-20] MEDS: enoxaparin 40 mg/0.4 mL Syringe SUBCUT (20:48)
--- NOTE | 2022-05-20 22:43 | PC.NURSE ---
Reassessed pt c/o pain w/urination. Pt states that the pain is only present when he is moving, denies pain currently.
[2022-05-21] VITALS: BP 113/62; PULSE 69; RESP 17; TEMP 37.1; O2SAT 98
[2022-05-21] MEDS: dextrose 5%-sod chloride 0.9% 1,000 ML 75 ML IV ×2 (01:07→17:45)
[2022-05-21 03:38] VITALS: RESP 18
[2022-05-21] MEDS: morphine 4 mg/mL SDV 1 mL 2 MG IVP (03:38)
[2022-05-21 03:44] VITALS: BP 118/54; PULSE 69; RESP 18; TEMP 36.9; O2SAT 96
--- NOTE | 2022-05-21 04:34 | PC.NURSE ---
Pt states that his pain has decreased to 3/10 at this time. Pt refuses further pain medication tx.
[2022-05-21 05:18] LABS: Basophils % 0.4 %; Eosinophils # 0.1 10^3/uL (0.0-0.8); Eosinophils % 0.8 %; Hematocrit 36.7 % (42.0-52.0); Hemoglobin 11.9 g/dL (11.7-16.6); Lymphocytes # 1.9 10^3/uL (0.8-4.8); Lymphocytes % 24.4 %; Mean Corpuscular HGB Conc 32.4 g/dL (30.0-36.0); Mean Corpuscular Hemoglobin 30.4 pg (28.0-34.0); Mean Corpuscular Volume 93.6 fl (80-94); Mean Platelet Volume 10.2 fL (7.4-10.4); Monocytes # 0.5 10^3/uL (0.2-0.9); Monocytes % 6.4 %; Neutrophils # 5.36 10^3/uL (1.8-7.7); Neutrophils % 67.6 %; Nucleated Red Blood Cells % 0 %; Platelet Count 193 10^3/cmm (130-400); Red Blood Count 3.92 10^6/uL (4.1-5.3); Red Cell Distribution Width 13.2 % (12.1-15.1); White Blood Count 7.9 10^3/uL (4.0-10.0)
[2022-05-21 05:41] LABS: Alanine Aminotransferase 9 U/L (0-41); Alkaline Phosphatase 66 U/L (40-130); Anion Gap 12.3 (5-19); Aspartate Amino Transferase 11 U/L (0-40); Blood Urea Nitrogen 16 mg/dL (6-20); Calcium 8.2 mg/dL (8.5-10.5); Carbon Dioxide 20 mmol/L (22-29); Chloride 110 mmol/L (98-107); Chol HDL Ratio 3.26 mg/dL (1.0-5.00); Cholesterol 150 mg/dL (0-200); Globulin 2.8 g/dL (1.3-4.6); Glomerular Filtration Rate 129.9 mL/min (90-130); Glucose 88 mg/dL (65-115); HDL Cholesterol 46 mg/dL (60-100); LDL Cholesterol Calculated 83 mg/dL (50-129); Osmolality Calculated 289 mOsm/kg (285-295); Potassium 3.3 mmol/L (3.5-5.1); Sodium 139 mmol/L (136-145); Total Bilirubin 1.1 mg/dL (0.15-1.2); Total Protein 5.8 g/dL (6.6-8.7); Triglycerides 103 mg/dL (0-150); VLDL Cholestrol Calculation 21 mg/dL (0-30)
[2022-05-21 06:27] LABS: Estmated Average Glucose 65; Hemoglobin A1C 3.9 % (4.0-6.0)
[2022-05-21 08:00] VITALS: BP 118/66; PULSE 58; RESP 16; TEMP 37.2; O2SAT 97
--- NOTE | 2022-05-21 08:33 | PM.PN ---
Subjective Subjective: Patient reports that his abdominal pain has improved. Denies any nausea or vomiting. He is hungry. Vitals/I&O/Wt Last Vital Signs Temp 98.1 F 05/21/22 15:40 Pulse 52 L 05/21/22 15:40 Resp 16 05/21/22 15:40 BP 120/62 05/21/22 15:40 Pulse Ox 97 05/21/22 15:40 O2 Del Method 05/21/22 03:44 05/21/22 05/21/22 05/21/22 06:59 14:59 22:59 Intake Total 1041.25 / 2041.25 1120 / 1120 Balance 1041.25 / 1841.25 1120 / 1120 Physical Exam Narrative: General: No acute distress, awake alert and oriented x3 Abdomen: Soft, mildly distended, mild and improved left lower quadrant tenderness, no guarding rebound or masses Data : 05/21/22 04:26 05/21/22 04:26 Micro: Microbiology 05/20/22 10:24 Enteric Pathogens (PCR) - Final Stool 05/20/22 10:24 C.difficile Toxin B Gene (PCR) - Final Stool A&P Assessment and plan (1) Abscess of sigmoid colon: Plan It is difficult to say if this is due to diverticulitis with possible small perforations or inflammatory bowel disease versus some other infectious etiology. There is not a significant fluid collection to be drained by IR at this time. Antibiotics Pain control IV fluids Clear liquid diet No acute surgical intervention at this time. We likely will need to rescan him prior to discharge He needs a follow-up colonoscopy in 6 to 8 weeks Attestations Medical Necessity Statement*: Patient requires at least 1 or 2 more nights in the hospital for IV antibiotics Coding Level of Care Code Acute Biochemistry Professor for g Fwd Diagnoses Abscess of sigmoid colon K63.0
[2022-05-21] MEDS: famotidine 20 mg/2 mL INJ IVP ×2 (09:29→21:16)
--- NOTE | 2022-05-21 10:14 | PC.CHAP ---
Pastoral Care Encounter/Spiritual Assessment Type of Contact [] Declined assistant track coach visit [] Patient/Family/Request visit [] Outpatient visit [] Follow-up visit [] Physician referral [] Code/Alert [x Routine visit [] Staff referral [] Actively dying [] Patient sleeping [] Family support [] [] Out of room [] Palliative care [] [] Receiving care in room [] Pre-surgical visit [] Trauma [] Long length of stay [] ICU visit [x] Other: sob Relational/Emotional Strength [] Patient feels connected with others/family/visitors/staff [] Distress [] Loneliness/isolation [] Abandonment Spirituality of Patient [] Person of Zoya [] Attends Religious of their Zoya [] Believes in Prayer [] Reads Bible or Orthodoxy materials [] There are Spiritual issues to be addressed Drill Bit Sharpener Interventions []x Prayer [] Active listening [] Non-anxious presence [] Spiritual/emotional support [] Crisis/trauma care [] Spiritual counseling [] Bereavement support [] Provided bereavement packet [] Provided Bible/devotional materials [] Provided toy/stuffed animal, coloring book to patient or family member [] Provided Communion [] Anointing/[place] [] Salvation [] Completed spiritual assessment [] Other: Impact on Illness or Injury [] Angry [] Fearful [] Anxious [] Often cries [] Exhaustion [] Unable to work [] Unable to attend confucianist [] Unable to walk/stand [] Unable to read [] Unable to drive [] Unable to eat/drink [] Unable to sleep [] Unable to be with family [] Patient intubated [] Other: Summary Time spent with patient
--- NOTE | 2022-05-21 13:05 | P.PN_ITS ---
Subjective Subjective: No acute events overnight. Patient states he is feeling hungry. Denies any nausea vomiting, headache. Passing flatus. States he consume at least half a pint of alcohol every alternate day. Last consumption of alcohol on Friday. Denies any past history of alcohol withdrawal. Vitals/I&O/Wt Last Vital Signs Temp 98.9 F 05/21/22 08:00 Pulse 58 L 05/21/22 08:00 Resp 16 05/21/22 08:00 BP 118/66 05/21/22 08:00 Pulse Ox 97 05/21/22 08:00 O2 Del Method 05/21/22 03:44 05/20/22 05/21/22 05/21/22 22:59 06:59 14:59 Intake Total 0 / 1000 1041.25 / 2041.25 Output Total 200 / 200 Balance -200 / 800 1041.25 / 1841.25 Weight last 48 hrs Weight 64.41 kg Physical Exam Narrative: General: No acute distress, AO x3 HEENT: PERRLA, pupils bilaterally equal and reactive, pallors not present Chest: Normal vesicular breath sounds, no added sounds, equal good air entry bilaterally CVS: S1-S2 regular, no murmurs, no tachycardia, no gallops, no rubs Abdomen: Soft, mildly distended, TTP over LLQ region Neuro: No focal deficits, no facial deformity, AO x3, power 5/5 in all limbs Data : 05/21/22 04:26 05/21/22 04:26 Micro: Microbiology 05/20/22 10:24 C.difficile Toxin B Gene (PCR) - Final Stool A&P Assessment and plan (1) Colitis: Given history, age and recurrence along with CT scan high chances of inflammatory bowel disease such as Crohn's versus ulcerative colitis. Will order ESR and CRP currently as they would be high given the infection. Patient would need colonoscopy as an outpatient once the acute event that was found. Check stool studies. Conservative treatment with bowel rest. Fluid resuscitation with D5 NS at 75 cc/h. Continue empiric Zosyn for now. (2) Abscess of sigmoid colon: Appreciate surgical recommendations. Recommend possible IR drainage. Case discussed with radiology. More than abscess the collection is consistent with phlegmon. For now we will plan to continue with IV antibiotics and depending on clinical picture going forward we will plan for repeat imaging in few days. (3) Alcohol abuse: [facility] protocol. Continue to monitor. Plan Plan for the day: Continue with IV antibiotics. Await stool studies. Continue with IV fluids. Start on clear liquid diet. Replace potassium Discharge planning: Plan to discharge in next 24 hours if patient remains medically stable on oral antibiotics. Full code. Heparin for DVT prophylaxis Early ambulation. NPO. Protonix for PUD prophylaxis Attestations Medical Necessity Statement*: Requires further hospitalization for management of colitis, possible abscess at sigmoid colon with contained perforation Time Spent in Patient Care: Greater than 35 minutes Coding Level of Care Code Acute Payroll Representative for [facility] Fwd Diagnoses Colitis K52.9 Abscess of sigmoid colon K63.0 Alcohol abuse F10.10
[2022-05-21] MEDS: ketorolac 30 mg/mL INJ 15 MG IVP (14:36)
[2022-05-21 15:40] VITALS: BP 120/62; PULSE 52; RESP 16; TEMP 36.7; O2SAT 97
[2022-05-21 15:48] LABS: Anti-Double Strand DNA AB <1 IU/mL; Jo-1 Antibody <1.0 NEG AI (<1.0 NEG); SM/RNP Antibodies <1.0 NEG AI (<1.0 NEG); SS-B/LA IGG <1.0 NEG AI (<1.0 NEG); Scleroderma Ab(Scl-70) Ab <1.0 NEG AI (<1.0 NEG); Ss-A/Ro Igg <1.0 NEG AI (<1.0 NEG)
[2022-05-21 19:58] VITALS: BP 133/77; PULSE 51; RESP 17; TEMP 36.7; O2SAT 98
[2022-05-21] MEDS: piperacillin-tazobactam 3.375 GM in sodium chloride 0.9% (plus) 50 ML 12.5 GM PHA2DOSE (21:15)
[2022-05-21] MEDS: enoxaparin 40 mg/0.4 mL Syringe SUBCUT (21:15)
[2022-05-21] MEDS: potassium chloride ER 20 mEq Tablet PO (21:59)
[2022-05-22] VITALS (13 sets, daily range): BP systolic 102–135; BP diastolic 41–75; PULSE 46–78; RESP 16–21; TEMP 36.8–37.1; O2SAT 95–100
[2022-05-22 01:46] LABS: Alanine Aminotransferase 9 U/L (0-41); Albumin Level 2.8 g/dL (3.5-5.2); Alkaline Phosphatase 59 U/L (40-130); Anion Gap 13.2 (5-19); Aspartate Amino Transferase 13 U/L (0-40); Blood Urea Nitrogen 8 mg/dL (6-20); Carbon Dioxide 18 mmol/L (22-29); Globulin 2.7 g/dL (1.3-4.6); Glomerular Filtration Rate 155.2 mL/min (90-130); Glucose 103 mg/dL (65-115); Osmolality Calculated 285 mOsm/kg (285-295); Sodium 138 mmol/L (136-145); Total Bilirubin 0.9 mg/dL (0.15-1.2); Total Protein 5.5 g/dL (6.6-8.7)
[2022-05-22 02:20] LABS: Chloride 109 mmol/L (98-107)
[2022-05-22 03:15] LABS: Potassium 2.2 mmol/L (3.5-5.1)
--- NOTE | 2022-05-22 03:20 | PC.NURSE ---
Contacted Dr. Peraza via phone to inform her of a potassium level of 2.2. She said she would put orders in.
--- NOTE | 2022-05-22 04:05 | PC.NURSE ---
Upon rounding on this patient, the patient asked if this nurse could help him turn over and place his arms down to his side, and assist him with the urinal, whereas he was able to do this himself earlier in the shift. Patient has been stating he feels as if his muscles were getting more and more stiff throughout the night with his potassium getting low. This nurse asked the patient how often these events happen and he stated pretty often .
--- NOTE | 2022-05-22 04:15 | PC.NURSE ---
Attempted to contact Dr. Peraza via phone and was unsuccessful. I messaged her via [employer] letting her know that the pt is now requesting help rolling and moving arms to side of body whereas he was preforming these task without assistance at the beginning of the shift. Am still awaiting orders for a critical lab potassium value of 2.2.
[2022-05-22] MEDS: potassium chloride ER 20 mEq Tablet 40 MEQ PO (04:47)
[2022-05-22] MEDS: potassium chloride premix 100 ML 25 MEQ IV (04:48)
--- NOTE | 2022-05-22 05:27 | PM.MISC ---
Miscellaneous Note Purpose of Documentation: hypokalemia Note: At ~ 4:30 am patient complained of worsening stiffness through the night. He was requiring more assistance to perform tasks such as using the urinal, turning sides, moving extremities, which he was able to perform independently before. No complains of swallowing difficulty, no c/o dyspnea, respirations are adequate, however he is trending towards sinus bradycardia now with hr 46 bpm. he had previously received 20 meq po potassium at ~ 10pm at night. Potassium draw was requested at 12, returned this morning at 2.2. He has a history of periodic hypokalemic paralysis and is having an acute episode now. States he has had K drop as low as 0.6 in the past. No h/o repiratory arrest in the past, Started on K rider 80meq via iv and given 40 meq po potassium. Moved to ICU for closer monitoring of respiratory status and development of any arrhythmias. Check K every 4 hrs.
[2022-05-22] MEDS: lidocaine 1% 5 ML in potassium chloride premix 100 ML 25 ML IV ×2 (05:41→10:50)
[2022-05-22] MEDS: sodium chlor 0.9% + KCl 20 mEq 20 MEQ/1,000 ML BAG 75 MEQ IV (05:46)
[2022-05-22] MEDS: piperacillin-tazobactam 3.375 GM in sodium chloride 0.9% (plus) 50 ML IV ×3 (06:12→22:44)
[2022-05-22] MEDS: ketorolac 30 mg/mL INJ 15 MG IVP (06:21)
--- NOTE | 2022-05-22 06:33 | PC.NURSE ---
Pt arrived from [facility] by hospital bed. Pt is alert, oriented, and talking. Pt is unable to move bilateral upper extremities, he can wiggle his toes and slightly bend his knees but movement is severely impaired. 04/29 pain in L hand IV site. New IV was started in a larger vein, K+ moved their, new K+ w/ lidocaine was started when order was received. L hand pain resolved.
[2022-05-22 07:54] LABS: Potassium 2.4 mmol/L (3.5-5.1)
[2022-05-22] MEDS: folic acid 1 mg Tablet PO (08:12)
[2022-05-22] MEDS: thiamine 100 mg Tablet PO (08:12)
[2022-05-22] MEDS: multivitamin therapeutic Tablet 1 TAB PO (08:12)
[2022-05-22] MEDS: spironolactone 25 mg Tablet PO (08:12)
[2022-05-22] MEDS: potassium chloride ER 20 mEq Tablet 80 MEQ PO (08:13)
--- NOTE | 2022-05-22 10:28 | PC.CHAP ---
Pastoral Care Encounter/Spiritual Assessment Type of Contact [] Declined cooperative extension agent visit [] Patient/Family/Request visit [] Outpatient visit [] Follow-up visit [] Physician referral [] Code/Alert [x] Routine visit [] Staff referral [] Actively dying [x] Patient sleeping [] Family support [] [] Out of room [] Palliative care [] [] Receiving care in room [] Pre-surgical visit [] Trauma [] Long length of stay [x] ICU visit [] Other: Relational/Emotional Strength [] Patient feels connected with others/family/visitors/staff [] Distress [] Loneliness/isolation [] Abandonment Spirituality of Patient [] Person of Zoya [] Attends Orthodoxy of their Zoya [] Believes in Prayer [] Reads Bible or Yazidi materials [] There are Spiritual issues to be addressed Revenue Collector Interventions [x] Prayer [] Active listening [] Non-anxious presence [] Spiritual/emotional support [] Crisis/trauma care [] Spiritual counseling [] Bereavement support [] Provided bereavement packet [] Provided Bible/devotional materials [] Provided toy/stuffed animal, coloring book to patient or family member [] Provided Communion [] Anointing/[place] [] Salvation [x] Completed spiritual assessment [] Other: Impact on Illness or Injury [] Angry [] Fearful [] Anxious [] Often cries [] Exhaustion [] Unable to work [] Unable to attend taoism [] Unable to walk/stand [] Unable to read [] Unable to drive [] Unable to eat/drink [] Unable to sleep [] Unable to be with family [] Patient intubated [] Other: Summary Time spent with patient
[2022-05-22] MEDS: sodium chlor 0.9% + KCl 40 mEq 40 MEQ/1,000 ML BAG 75 MEQ IV (10:50)
[2022-05-22] MEDS: famotidine 20 mg/2 mL INJ IVP ×2 (10:52→22:45)
[2022-05-22 12:26] LABS: Potassium 4.8 mmol/L (3.5-5.1)
--- NOTE | 2022-05-22 12:28 | P.PN_ITS ---
Subjective Subjective: Overnight patient had worsening weakness of his limbs along with bradycardia which was thought to be secondary to low potassium. He was transferred to ICU and started on aggressive potassium repletion after which his symptoms started resolving. On examination heart rate is better when he is awak e up to 70s but on rest when he is sleeping going down to high 40s but remained sinus. Patient states his weakness seems to be improving. Denies any nausea vomiting, headache. States he is hungry. States abdominal pain is better. Vitals/I&O/Wt Last Vital Signs Temp 98.2 F 05/22/22 08:00 Pulse 58 L 05/22/22 08:00 Resp 16 05/22/22 08:00 BP 135/69 05/22/22 08:00 Pulse Ox 98 05/22/22 08:00 O2 Del Method 05/22/22 08:00 05/21/22 05/22/22 05/22/22 22:59 06:59 14:59 Intake Total 786 / 2906 750 / 3656 816 / 816 Output Total 600 / 600 475 / 475 Balance 786 / 2906 150 / 3056 341 / 341 Physical Exam Narrative: General: No acute distress, AO x3 HEENT: PERRLA, pupils bilaterally equal and reactive, pallors not present Chest: Normal vesicular breath sounds, no added sounds, equal good air entry bilaterally CVS: S1-S2 regular, bradycardia, no murmurs, no tachycardia, no gallops, no rubs Abdomen: Soft, mildly distended, TTP over LLQ region Neuro: No focal deficits, no facial deformity, AO x3, power 3 /5 in all limbs, flaccid but seems to be improving Data : 05/21/22 04:26 05/22/22 11:47 Micro: Microbiology 05/20/22 10:24 Enteric Pathogens (PCR) - Final Stool 05/20/22 10:24 C.difficile Toxin B Gene (PCR) - Final Stool A&P Assessment and plan (1) Colitis: Given history, age and recurrence along with CT scan high chances of inflammatory bowel disease such as Crohn's versus ulcerative colitis. Will not order ESR and CRP currently as they would be high given the infection. Patient would need colonoscopy as an outpatient once the acute event that was found. Stool studies negative for infectious cause. Conservative treatment with bowel rest. Fluid resuscitation with D5 NS at 75 cc/h. Continue empiric Zosyn for now. Discharged on oral Augmentin for 14-day course. (2) Abscess of sigmoid colon: Appreciate surgical recommendations. Recommend possible IR drainage. Case discussed with radiology. More than abscess the collection is consistent with phlegmon. For now we will plan to continue with IV antibiotics and depending on clinical picture going forward we will plan for repeat imaging in few days. (3) Alcohol abuse: [facility] protocol. Continue to monitor. 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 Potassium being repleted. Repeat another 80 mEq oral. For now continue with checking potassium every 4 hours. If remains stable can change to every 12 hours. IV fluids?normal saline with 40 mg of potassium at 75 cc/h. Plan Discharge planning: Plan to discharge in next 24 hours if patient remains medically stable on oral antibiotics. Continue care at ICU given bradycardia and frequent potassium checks. Full code. Heparin for DVT prophylaxis Early ambulation. NPO. Protonix for PUD prophylaxis Attestations Medical Necessity Statement*: Requires further hospitalization for management of contained perforation of diverticulitis, hypokalemic periodic paralysis Potassium is being repeated Time Spent in Patient Care: Greater than 35 minutes Coding Level of Care Code Acute Cardiology Associate for [facility] Fwd Diagnoses Colitis K52.9 Abscess of sigmoid colon K63.0 Alcohol abuse F10.10 Hypokalemic periodic paralysis G72.3
--- NOTE | 2022-05-22 14:21 | PM.PN ---
Subjective Subjective: Patient reports that his abdominal pain has improved. Denies any nausea or vomiting. He is hungry. Passing liquid stool Vitals/I&O/Wt Last Vital Signs Temp 98.2 F 05/22/22 12:00 Pulse 58 L 05/22/22 08:00 Resp 16 05/22/22 12:00 BP 135/69 05/22/22 12:00 Pulse Ox 98 05/22/22 12:00 O2 Del Method 05/22/22 12:00 05/21/22 05/22/22 05/22/22 22:59 06:59 14:59 Intake Total 786 / 2906 750 / 3656 1527 / 1527 Output Total 600 / 600 475 / 475 Balance 786 / 2906 150 / 3056 1052 / 1052 Physical Exam Narrative: General: No acute distress, awake alert and oriented x3 Abdomen: Soft, mildly distended, mild and improved left lower quadrant tenderness, no guarding rebound or masses Data : 05/21/22 04:26 05/23/22 03:30 Micro: Microbiology 05/20/22 10:24 Enteric Pathogens (PCR) - Final Stool 05/20/22 10:24 C.difficile Toxin B Gene (PCR) - Final Stool A&P Assessment and plan (1) Abscess of sigmoid colon: Plan It is difficult to say if this is due to diverticulitis with possible small perforations or inflammatory bowel disease versus some other infectious etiology. There is not a significant fluid collection to be drained by IR at this time. Antibiotics Pain control IV fluids Full liquid diet No acute surgical intervention at this time. Will rescan him if he gets worse He needs a follow-up colonoscopy in 6 to 8 weeks Attestations Medical Necessity Statement*: Further hospitalization per hospitalist Coding Level of Care Code Acute Appraiser Irrigation Tax for Chg Fwd Diagnoses Abscess of sigmoid colon K63.0
[2022-05-22] MEDS: calcium gluconate 0.9% NaCL 1 GM/50 ML PREMIX IV (17:23)
[2022-05-22] MEDS: albuterol 2.5 mg/3 mL Neb INHALATION (18:08)
--- NOTE | 2022-05-22 18:22 | ECG_ITS ---
[facility] Test Date: 2022-05-22 Pat Name: Trent Marshall Department: Room: ICU01 Gender: Male [place] Laborer: : 1990 Requested By: Zaheer Alanis Order Number: [id number] Sylvester MD: Lora Marion M.D. Measurements Intervals [place] Rate: 61 P: -3 [place]: 143 QRS: 36 QRSD: 95 T: 26 QT: 423 QTc: 429 Interpretive Statements SINUS RHYTHM WITH SINUS ARRHYTHMIA Compared to ECG 03/15/2017 14:10:40 Sinus bradycardia no longer present Electronically Signed On 05-22-2022 19:24:17 CDT by Lora Marion M.D. [email or web address]
[2022-05-22 20:32] LABS: Potassium 4.5 mmol/L (3.5-5.1)
[2022-05-22 23:57] LABS: Potassium 4.4 mmol/L (3.5-5.1)
[2022-05-23] VITALS (13 sets, daily range): BP systolic 96–120; BP diastolic 53–72; PULSE 38–60; RESP 14–23; TEMP 36.4–37; O2SAT 97–100
[2022-05-23] MEDS: ketorolac 30 mg/mL INJ 15 MG IVP (02:47)
[2022-05-23 05:04] LABS: Alanine Aminotransferase 11 U/L (0-41); Albumin Level 3.3 g/dL (3.5-5.2); Alkaline Phosphatase 62 U/L (40-130); Aspartate Amino Transferase 16 U/L (0-40); Blood Urea Nitrogen 5 mg/dL (6-20); Calcium 8.7 mg/dL (8.5-10.5); Carbon Dioxide 20 mmol/L (22-29); Chloride 106 mmol/L (98-107); Globulin 2.7 g/dL (1.3-4.6); Glomerular Filtration Rate 129.9 mL/min (90-130); Glucose 107 mg/dL (65-115); Osmolality Calculated 280 mOsm/kg (285-295); Sodium 136 mmol/L (136-145); Total Bilirubin 0.6 mg/dL (0.15-1.2)
[2022-05-23 05:25] LABS: Anion Gap 14.1 (5-19); Potassium 4.1 mmol/L (3.5-5.1)
[2022-05-23] MEDS: piperacillin-tazobactam 3.375 GM in sodium chloride 0.9% (plus) 50 ML IV ×2 (05:53→16:57)
--- NOTE | 2022-05-23 08:07 | USCV_ITS ---
Trent Marshall Age: 31 Gender: M : 1990 Exam Date: 05/23/2022 09:03 Ordering Phys: Zaheer Alanis MD Technologist: Vernon Feldman [place] [facility] [place]: chest pain, low potasium, bradycardia BP: 114 / 62 HR: 44 Rhythm: Sinus Technical Quality: Good MEASUREMENTS (Male / Female) Normal Values 2D ECHO LV Diastolic Diameter PLAX 4.7 cm 4.2 - 5.9 / 3.9 - 5.3 cm LV Systolic Diameter PLAX 2.9 cm IVS Diastolic Thickness 1.0 cm 0.6 - 1.0 / 0.6 - 0.9 cm IVS Systolic Thickness 1.3 cm LVPW Diastolic Thickness 0.9 cm 0.6 - 1.0 / 0.6 - 0.9 cm LVPW Systolic Thickness 1.1 cm LVOT Diameter 2.0 cm LV Ejection Fraction 2D Teich 67.8 % LV Ejection Fraction MOD 2C 63.6 % LV Ejection Fraction 2C AL 63.6 % LA Diameter 2.9 cm Aorta at Sinotubular Diameter 2.8 cm IVC Diameter 1.4 cm M-MODE Aortic Annulus Diameter 3.3 cm LA Ao Ratio MM 0.9 MV E Point Septal Separation 0.8 cm DOPPLER AV Peak Velocity 141.0 cm/s LVOT Peak Velocity 116.0 cm/s AV Area Cont Eq vti 2.6 cm squared AV Area Cont Eq pk 2.7 cm squared MV Area PHT 5.0 cm squared Mitral E to A Ratio 4.0 MV E' Velocity 65.5 cm/s Mitral E to MV E' Ratio 6.4 Mitral E to LV E' Lateral Ratio 5.9 Mitral E to LV E' Septal Ratio 7.0 TR Peak Velocity 193.7 cm/s TR Peak Gradient 15.0 mmHg TV Peak E Velocity 99.0 cm/s Right Atrial Pressure 3.0 mmHg Pulmonary Artery Systolic Pressu 18.0 mmHg FINDINGS Left Ventricle Normal left ventricular size, systolic function and wall thickness, with no regional wall motion abnormalities. Left ventricular ejection fraction is estimated at 65 %. Normal diastolic function. Right Ventricle Normal right ventricular size and systolic function. Right ventricular systolic pressure 18 mmHg. Right Atrium Normal right atrial size. Left Atrium Normal left atrial size. Mitral Valve Structurally normal mitral valve. No mitral valve stenosis. No mitral valve regurgitation. Aortic Valve Structurally normal trileaflet aortic valve. No aortic valve stenosis. No aortic valve regurgitation. Tricuspid Valve Structurally normal tricuspid valve. No tricuspid valve stenosis. Trace tricuspid valve regurgitation. Pulmonic Valve Structurally normal pulmonic valve. No pulmonary valve stenosis. Trace pulmonary valve regurgitation. Pericardium No pericardial effusion. Aorta Normal size aortic root and proximal ascending aorta. IVC Normal IVC dimension with >50% respiratory change of the inferior vena cava. CONCLUSIONS 1. Normal left ventricular size, systolic function and wall thickness, with no regional wall motion abnormalities. Left ventricular ejection fraction is estimated at 65 %. Normal diastolic function. 2. Normal right ventricular size and systolic function. 3. No significant valvular abnormality. 4. No prior similar studies to compare. Lora Marion MD (Electronically Signed) Final Date: 24 May 2022 10:40 S
[2022-05-23] MEDS: spironolactone 25 mg Tablet PO (08:26)
[2022-05-23] MEDS: thiamine 100 mg Tablet PO (08:26)
[2022-05-23] MEDS: multivitamin therapeutic Tablet 1 TAB PO (08:26)
[2022-05-23] MEDS: folic acid 1 mg Tablet PO (08:26)
--- NOTE | 2022-05-23 10:31 | P.PN_ITS ---
Subjective Subjective: Patient reports that his abdominal pain has improved. Denies any nausea or vomiting. Passing liquid stool Vitals/I&O/Wt Last Vital Signs Temp 97.6 F 05/23/22 07:38 Pulse 38 L 05/23/22 07:38 Resp 17 05/23/22 07:38 BP 96/53 05/23/22 07:38 Pulse Ox 99 05/23/22 07:38 O2 Del Method 05/23/22 07:38 05/22/22 05/23/22 05/23/22 22:59 06:59 14:59 Intake Total 1135 / 2712 50 / 2762 Output Total 1150 / 1625 450 / 2075 Balance -15 / 1087 -400 / 687 Physical Exam Narrative: General: No acute distress, awake alert and oriented x3 Abdomen: Soft, mildly distended, minimal left lower quadrant tenderness, no guarding rebound or masses Data : 05/21/22 04:26 05/23/22 03:30 A&P Assessment and plan (1) Abscess of sigmoid colon: Plan It is difficult to say if this is due to diverticulitis with possible small perforations or inflammatory bowel disease versus some other infectious etiology. There is not a significant fluid collection to be drained by IR at this time. He should complete a 14-day course of antibiotics with Augmentin at home Pain control Full liquid diet for today and tomorrow and then soft diet for 1 week No acute surgical intervention at this time. 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
[2022-05-23] MEDS: famotidine 20 mg/2 mL INJ IVP ×2 (10:38→20:24)
--- NOTE | 2022-05-23 11:02 | ECG_ITS ---
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 Measurements Intervals [place] Rate: 51 P: -35 NC: 153 QRS: 61 QRSD: 87 T: 48 QT: 460 QTc: 427 Interpretive Statements SINUS BRADYCARDIA Compared to ECG 05/22/2022 18:22:50 Sinus rhythm no longer present Sinus arrhythmia no longer present Electronically Signed On 05-23-2022 15:06:27 CDT by Yuri Farooq M.D. [id number]
--- NOTE | 2022-05-23 11:02 | PM.PN ---
Subjective Subjective: Patient seen in ICU today. States abdominal pain is better. Weakness is better. Patient's heart rate has been running on the lower side. Dropping as down to high 40s overnight. As per review of chart patient's heart rate has remained between high 40s to high 30s during the night. Patient has been complaining of weakness but not sure if it is because of bradycardia versus improving hypokalemia in a patient with history of hypokalemic periodic paralysis Vitals/I&O/Wt Last Vital Signs Temp 97.6 F 05/23/22 07:38 Pulse 38 L 05/23/22 07:38 Resp 17 05/23/22 07:38 BP 96/53 05/23/22 07:38 Pulse Ox 99 05/23/22 07:38 O2 Del Method 05/23/22 07:38 05/22/22 05/23/22 05/23/22 22:59 06:59 14:59 Intake Total 1135 / 2712 50 / 2762 Output Total 1150 / 1625 450 / 2075 Balance -15 / 1087 -400 / 687 Physical Exam Narrative: General: No acute distress, AO x3 HEENT: PERRLA, pupils bilaterally equal and reactive, pallors not present Chest: Normal vesicular breath sounds, no added sounds, equal good air entry bilaterally CVS: S1-S2 regular, bradycardia, no murmurs, no tachycardia, no gallops, no rubs Abdomen: Soft, mildly distended, TTP over LLQ region Neuro: No focal deficits, no facial deformity, AO x3, power 3 /5 in all limbs, flaccid but seems to be improving Data : 05/21/22 04:26 05/23/22 03:30 A&P Assessment and plan (1) Colitis: Given history, age and recurrence along with CT scan high chances of inflammatory bowel disease such as Crohn's versus ulcerative colitis. Will not order ESR and CRP currently as they would be high given the infection. Patient would need colonoscopy as an outpatient once the acute event that was found. Stool studies negative for infectious cause. Conservative treatment with bowel rest. Liquid diet. Stop IV fluids. Continue with Zosyn for now. Will discharge on oral antibiotics to finish a 14-day course when ready. (2) Abscess of sigmoid colon: Appreciate surgical recommendations. Recommend possible IR drainage. Case discussed with radiology. More than abscess the collection is consistent with phlegmon. Plan for reimaging prior to discharge. (3) Alcohol abuse: CIWA protocol. Continue to monitor. 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 Potassium seems to have resolved. 4.1 currently. Continue to monitor. Continue home dose of spironolactone. (5) Bradycardia: Persistent especially at night when resting. Going down to high 30s. QTC within normal limits. Recheck EKG. Monitor electrolytes. Check echocardiogram to rule out subacute bacterial endocarditis with a history of drug abuse in the past. Will consult cardiology for further recommendations. Atropine at bedside. Plan Discharge planning: Plan to discharge today or within next 24 hours once cleared by cardiology because of significant bradycardia. Continue care at ICU given significant bradycardia. Full code. Heparin for DVT prophylaxis Early ambulation. NPO. 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
--- NOTE | 2022-05-23 12:37 | P.CONIM_ITS ---
Providers/Reason For Consult Consulting Physician/Specialty*: Dr. Marion, cardiology Reason for Consult*: Bradycardia Attending Physician: Zaheer Alanis MD Primary Care Provider: French Kwan MD History of Present Illness History of Present Illness Trent Marshall is a 31 year old male with past medical history of hypokalemic periodic paralysis since 4 years of age, bradycardia and diverticulitis presented to the emergency room with left lower quadrant abdominal pain with associated diarrhea 10-11 episodes. No blood in stools, mucus+. no nausea, vomiting. He is being treated for abscess of sigmoid colon. He was noted to have bradycardia with HR 30's-high 60's. intermittent junctional beats. No symptoms at this time. He tells me has always had bradycardia and denies any symptoms of dizziness, presyncope/syncope or fatigue. Review of Systems Const: Denies: fever(s), chills, change in appetite, change in weight, fatigue or malaise Eyes: Denies: change in vision or eye discharge ENMT: Denies: throat pain, swelling of lips/tongue, oral sores, bleeding gums, nasal congestion, epistaxis or post nasal drip Card: Denies: chest pain, palpitations, irregular heart rhythm, edema, lightheadedness, syncope, dyspnea on exertion, orthopnea or leg pain with exertion Resp: Denies: dyspnea, productive cough, wheezing or hemoptysis GI: Denies: abdominal pain, nausea, vomiting, hematemesis, heartburn, diarrhea, constipation, change in bowel habits, hematochezia or melena : Denies: dysuria, oliguria, hematuria, scrotal swelling or erectile dysfunction Musc: Denies: back pain, extremity swelling, joint pain or muscle weakness Skin/Breast: Denies: rash, erythema, new lesions or change in hair Neuro: Denies: numbness in extremities, weakness in extremities, lack of coordination, difficulty walking, dizziness, vertigo or confusion Psych: Denies: anxiety, depression, irritability, suicidal ideation or homicidal ideation Endo: Denies: tired all the time, cold intolerance or heat intolerance Andre/Lymph: Denies: easy bruising, easy bleeding, petechiae or purpura All/Imm: Denies: throat swelling, tongue swelling or acute wheezing Medications/Allergies Home Medications Medication Instructions Recorded Confirmed Last Taken Type spironolactone 25 mg tablet 25 mg PO DAILY 05/19/22 05/19/22 05/18/22 History Allergies Allergy/AdvReac Type Severity Reaction Status Date / Time No Known Allergies Allergy Verified 05/19/22 14:09 Current Medications Generic Name Dose Route Start Last Admin Trade Name Freq PRN Reason Stop Dose Admin Enoxaparin Sodium 40 mg 05/19/22 21:45 05/22/22 22:45 Enoxaparin 40 Mg/0.4 Ml Syringe SUBCUT Not Given Q24H CRISTIAN Famotidine 20 mg 05/19/22 21:45 05/23/22 10:38 Famotidine 20 Mg/2 Ml Inj IVP 20 mg Q12H CRISTIAN Administration Folic Acid 1 mg 05/22/22 09:00 05/23/22 08:26 Folic Acid 1 Mg Tablet PO 1 mg DAILY CRISTIAN Administration Piperacillin Sod/Tazobactam 50 mls @ 12.5 mls/hr 05/22/22 06:00 05/23/22 05:53 Sod 3.375 gm/ Sodium Chloride IV 12.5 mls/hr Q8H CRISTIAN Administration Protocol Ketorolac Tromethamine 15 mg 05/19/22 21:31 05/23/22 02:47 Ketorolac 30 Mg/Ml Inj IVP 05/24/22 21:30 15 mg Q8H PRN Administration MODERATE PAIN Morphine Sulfate 2 mg 05/19/22 21:31 05/21/22 03:38 Morphine 4 Mg/Ml Sdv 1 Ml IVP 2 mg Q4H PRN Administration SEVERE PAIN Multivitamins Therapeutic 1 tab 05/22/22 09:00 05/23/22 08:26 Multivitamin Therapeutic Tablet PO 1 tab DAILY CRISTIAN Administration Spironolactone 25 mg 05/22/22 09:00 05/23/22 08:26 Spironolactone 25 Mg Tablet PO 25 mg DAILY CRISTIAN Administration Thiamine Mononitrate 100 mg 05/22/22 09:00 05/23/22 08:26 Thiamine 100 Mg Tablet PO 100 mg DAILY CRISTIAN Administration PFSH Acute PFSH: Medical History Alcohol abuse Diverticulitis Hypokalemic periodic paralysis Left hip pain Left shoulder pain Family History Grandmother Diabetes Cancer Father Heart disease Mother Heart disease Social History Smoking and tobacco status: current every day smoker (vape) e-cigarettes E- Cigarette Details: vaporizer device and with nicotine E-cig/vape details: approx 9 months and smokeless tobacco Smokeless tobacco details: can per week x 10 yrs Second hand smoke exposure: No Alcohol intake: current Alcohol intake frequency: few times a month Alcohol type: hard liquor Lives independently: No Household members: family Marital status: Number of children: 2 service: No Current occupational status: employed Current occupation: [employer] History of recent travel: No Current gender identity: Male Special gem needs: No Agree to transfusion: Yes Vitals/I&O/Wt Last Vital Signs Temp 97.6 F 05/23/22 07:38 Pulse 38 L 05/23/22 07:38 Resp 17 05/23/22 07:38 BP 96/53 05/23/22 07:38 Pulse Ox 99 05/23/22 07:38 O2 Del Method 05/23/22 07:38 05/22/22 05/23/22 05/23/22 22:59 06:59 14:59 Intake Total 1135 / 2712 50 / 2762 Output Total 1150 / 1625 450 / 2075 Balance -15 / 1087 -400 / 687 Physical Exam Narrative: GENERAL: Averagely built and averagely nourished in no acute distress HEENT: Extraocular movement intact. No pallor or icterus. NECK: central trachea, No JVD, No carotid bruit. CARDIOVASCULAR SYSTEM: S1-S2 regular. No S3 or S4 present. No murmur rubs or gallops. RESPIRATORY SYSTEM: Chest clear to auscultation. No wheezes rhonchi or rubs heard. No use of accessory muscles. ABDOMEN: Soft, nontender and nondistended. Normal bowel sounds present. No hepatosplenomegaly appreciated. EXTREMITIES: No cyanosis or edema. No signs of chronic venous insufficiency. 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 No focal neurological deficits. SKIN: Normal turgor and temperature. PSYCH: Normal insight and judgment. Data : 05/21/22 04:26 05/23/22 03:30 A&P Assessment and plan (1) Bradycardia: Telemetry reviewed -will f/u on echo -continue to monitor on telemetry. (2) Abscess of sigmoid colon: (3) Colitis: (4) Hypokalemic periodic paralysis: (5) Alcohol abuse: Consult Attestations Time Spent in Patient Care: 16 - 35 minutes Coding Level of Care Code Acute Mailroom Personnel for julio césar Fwd Diagnoses Bradycardia R00.1 Abscess of sigmoid colon K63.0 Colitis K52.9 Hypokalemic periodic paralysis G72.3 Alcohol abuse F10.10
--- NOTE | 2022-05-23 12:50 | PC.CHAP ---
Pastoral Care Encounter/Spiritual Assessment Type of Contact [] Declined oral surgeon visit [] Patient/Family/Request visit [] Outpatient visit [] Follow-up visit [] Physician referral [] Code/Alert x] Routine visit [] Staff referral [] Actively dying [] Patient sleeping [] Family support [] [] Out of room [] Palliative care [] [] Receiving care in room [] Pre-surgical visit [] Trauma [] Long length of stay [x] ICU visit [] Other: Relational/Emotional Strength [] Patient feels connected with others/family/visitors/staff [] Distress [] Loneliness/isolation [] Abandonment Spirituality of Patient [] Person of Zoya [] Attends Judaism of their Zoya [] Believes in Prayer [] Reads Bible or Restoration materials [] There are Spiritual issues to be addressed 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 Interventions [x] Prayer [] Active listening [] Non-anxious presence [] Spiritual/emotional support [] Crisis/trauma care [] Spiritual counseling [] Bereavement support [] Provided bereavement packet [] Provided Bible/devotional materials [] Provided toy/stuffed animal, coloring book to patient or family member [] Provided Communion [] Anointing/[place] [] Salvation [x] Completed spiritual assessment [] Other: Impact on Illness or Injury [] Angry [] Fearful [] Anxious [] Often cries [] Exhaustion [] Unable to work [] Unable to attend rastafari [] Unable to walk/stand [] Unable to read [] Unable to drive [] Unable to eat/drink [] Unable to sleep [] Unable to be with family [] Patient intubated [] Other: Summary Time spent with patient
[2022-05-24] MEDS: piperacillin-tazobactam 3.375 GM in sodium chloride 0.9% (plus) 50 ML IV ×2 (01:02→09:01)
[2022-05-24 03:56] VITALS: TEMP 36.7
[2022-05-24 05:38] VITALS: PULSE 36
[2022-05-24 08:00] VITALS: BP 107/51; PULSE 51; RESP 10; TEMP 36.8
[2022-05-24] MEDS: famotidine 20 mg/2 mL INJ IVP (08:11)
[2022-05-24] MEDS: spironolactone 25 mg Tablet PO (08:11)
[2022-05-24] MEDS: multivitamin therapeutic Tablet 1 TAB PO (08:11)
[2022-05-24] MEDS: thiamine 100 mg Tablet PO (08:11)
[2022-05-24] MEDS: folic acid 1 mg Tablet PO (08:12)
--- NOTE | 2022-05-24 09:27 | CT_ITS ---
WS: [id number] Exam: CT abdomen pelvis w con* [id number] Date/Time of Exam: 05/24/2022 9:30 AM Reason For Exam: diverticulitis,ileal plegmon, possible abscess, DLP: 371.[address] scans at [facility] use at least one of these dose optimization techniques: automated e xposure control; mA and/or kV adjustment per patient size (includes targeted exams where dose is matc hed to clinical indication); or iterative reconstruction. Compared to previous exam 05/19/2022. Lower lung zones are clear. 9 mm cyst in the left lobe of the liver. The liver is otherwise unremarka ble. The stomach, spleen and pancreas appear normal. No calcified stones in the gallbladder. Adrenal glands and kidneys are unremarkable. The abdominal aorta is normal in caliber. The IVC and portal vei n appear to be patent. No lymphadenopathy. No free air. Small bowel loops are normal in caliber. Agai n noted is diverticulosis and acute diverticulitis of the sigmoid colon. A 1.1 cm fluid collection se en in the right wall of the sigmoid colon may represent a tiny abscess. It is stable. No other sign o f abscess. There is inflammatory stranding throughout the mesenteric fat in the pelvis. No perforatio n is seen. No sign of acute appendix. Intact urinary bladder which is incompletely distended. Unremar kable prostate gland. There is less reactive inflammation of the terminal ileum were noted on the las t exam. No destructive bone lesions are seen. CT/CT abdomen pelvis w con* [id number] IMPRESSION: 1. 1.1 cm fluid collection noted in the right wall of the sigmoid colon that ma y represent a tiny microabscess. This is stable in appearance since previous study. No other sign of abscess in the pelvis. 2. Diverticulosis and acute diverticulitis of the sigmoid colon without obvious perforation. Little change since prior study. 3. No mass, lymphadenopathy or acute process in the abdomen.
--- NOTE | 2022-05-24 09:29 | PM.DCS ---
Discharge Providers Date of Admission: 05/19/22 20:44 Date of Discharge: May 24, 2022 Attending Provider at Admission: Gema Peraza MD Attending Provider at Discharge: Zaheer Alanis MD Consults: Surgery: Dr. Cruz Cardiology: Dr. Marion Primary Care Provider: French Kwan MD Diagnoses at Discharge Discharge Diagnosis (1) Bradycardia: Status: Acute (2) Abscess of sigmoid colon: Status: Acute (3) Colitis: Status: Acute (4) Hypokalemic periodic paralysis: Status: Acute (5) Alcohol abuse: Status: Acute Reason for Visit Reason for Visit: UC sent for stomach flare up Brief History: History as per HPI: Trent Marshall is a 31 year old male past medical history of hypokalemic periodic paralysis, presenting today to the emergency room with left lower quadrant abdominal pain that started last night.? Initially pain started at 11 PM.? No obvious trigger or relieving factors. Noother sick contacts. He has had some associated diarrhea 10-11 episodes. No blood in stools, mucus+. no nausea, vomiting. Reports a past history of diverticulitis 3 years ago. No follow up colonoscopy perfromed,, No family h/o IBD? or other inflammatory conditions. Hospital Course Hospital Course Patient was sent to the hospital for further evaluation and management. He was started on broad-spectrum antibiotics. Surgery was consulted. CT abdomen on admission was consistent with a possible phlegmon/developing abscess at the ileal fold. He was treated conservatively and diet was advanced gradually. He responded well to the treatment and has been pain-free for more than 72 hours. His hospitalization was complicated by him developing transient paralysis secondary to hypokalemia in view of his history of hypokalemic periodic paralysis which resolved with resolution of hypokalemia though he continued to have episodes of bradycardia with heart rate trending down to high 30s. Cardiology was consulted and he has been advised to follow-up as an outpatient in a month. He is also advised to monitor his heart rate at home. He was monitored in the hospital for around 48 hours and during the events of bradycardia patient remained asymptomatic and hemodynamically stable. He was discharged hemodynamically stable condition on oral antibiotics for 2 more weeks. He is to repeat follow-up with his primary care provider within next 1 week. He should have a repeat EGD and colonoscopy in 2 months to rule out inflammatory bowel disease. He should also have a repeat CT scan of his abdomen to review further resolution of developing abscess. Care plan was discussed in detail with the patient. Physical Exam Narrative: General: No acute distress, AO x3 HEENT: PERRLA, pupils bilaterally equal and reactive, pallors not present Chest: Normal vesicular breath sounds, no added sounds, equal good air entry bilaterally CVS: S1-S2 regular, bradycardia, no murmurs, no tachycardia, no gallops, no rubs Abdomen: Soft, mildly distended, TTP over LLQ region Neuro: No focal deficits, no facial deformity, AO x3, power 3 /5 in all limbs, flaccid but seems to be improving Discharge Data Studies Completed and Pending Completed Studies During Hospitalization Category Date Time Status CT abdomen pelvis w con* [id number] Urgent Cat Scan 05/19/22 18:13 Completed Pending at discharge Category Date Time Status CT abdomen pelvis w con* [id number] Routine Cat Scan 05/24/22 09:27 Ordered CV. echo complete* [id number] Routine Ultrasound 05/23/22 08:07 Taken Radiology Impressions Abdomen/Pelvis CT 05/19/22 18:13 IMPRESSION: 1. There is mucosal thickening of the distal ileum and rectosigmoid colon with associated mesenteric inflammatory stranding consistent with a nonspecific enteritis. Crohn's disease is the top differential given the sites of mucosal thickening. 2. Peripherally enhancing complex fluid collections along the left and right lateral aspects of the sigmoid mucosa and posterior to the distal ileum raise concern for abscess formations. COMMENTS: Consistent with the [employer]'s Incidental Findings Committee white paper (J Am Odalis Radiol 2018): Any incidental renal lesion less than 1 cm or classified as too small to characterize, or any incidental cystic renal lesion characterized as simple-appearing, is likely benign. No follow-up imaging is recommended for these lesions per consensus recommendations based on imaging criteria. ADDENDUM: 05/19/221947 CRITICAL RESULT: The study was personally discussed on the telephone with ANASTASIIA Slater on 05/19/2022 7:46 PM CDT. The results were understood and acknowledged. Echocardiogram: CONCLUSIONS ?1. Normal left ventricular size, systolic function and wall ?thickness, with no regional wall motion abnormalities. Left ?ventricular ejection fraction is estimated at 65 %. Normal ?diastolic function. ?2. Normal right ventricular size and systolic function. ?3. No significant valvular abnormality. ?4. No prior similar studies to compare. ?Lora Marion MD ?(Electronically Signed) ?Final Date:? ? ? 24 May 2022 Laboratory Results WBC 7.9 10^3/uL (4.0-10.0) 05/21/22 04:26 RBC 3.92 10^6/uL (4.1-5.3) L 05/21/22 04:26 Hgb 11.9 g/dL (11.7-16.6) 05/21/22 04:26 Hct 36.7 % (42.0-52.0) L 05/21/22 04:26 MCV 93.6 fl (80-94) 05/21/22 04:26 MCH 30.4 pg (28.0-34.0) 05/21/22 04:26 MCHC 32.4 g/dL (30.0-36.0) 05/21/22 04:26 RDW 13.2 % (12.1-15.1) 05/21/22 04:26 Plt Count 193 10^3/cmm (130-400) 05/21/22 04:26 MPV 10.2 fL (7.4-10.4) 05/21/22 04:26 Neut % (Auto) 67.6 % 05/21/22 04:26 Lymph % (Auto) 24.4 % 05/21/22 04:26 [place] % (Auto) 6.4 % 05/21/22 04:26 Eos % (Auto) 0.8 % 05/21/22 04:26 Baso % (Auto) 0.4 % 05/21/22 04:26 Neut # (Auto) 5.36 10^3/uL (1.8-7.7) 05/21/22 04:26 Lymph # (Auto) 1.9 10^3/uL (0.8-4.8) 05/21/22 04:26 [place] # (Auto) 0.5 10^3/uL (0.2-0.9) 05/21/22 04:26 Eos # (Auto) 0.1 10^3/uL (0.0-0.8) 05/21/22 04:26 Baso # (Auto) 0.0 10^3/uL (0.0-0.1) 05/21/22 04:26 Nucleated RBC % (auto) 0 % 05/21/22 04:26 Nucleated RBCs # 0.0 /100WBC 05/21/22 04:26 Sodium 136 mmol/L (136-145) 05/23/22 03:30 Potassium 4.1 mmol/L (3.5-5.1) 05/23/22 03:30 Chloride 106 mmol/L (98-107) 05/23/22 03:30 Carbon Dioxide 20 mmol/L (22-29) L 05/23/22 03:30 Anion Gap 14.1 (5-19) 05/23/22 03:30 BUN 5 mg/dL (6-20) L 05/23/22 03:30 Creatinine 0.7 mg/dL (0.7-1.2) 05/23/22 03:30 GFR Calculation 129.9 mL/min (90-130) 05/23/22 03:30 Glucose 107 mg/dL (65-115) 05/23/22 03:30 Estimat Average Glucose 65 05/21/22 04:26 Hemoglobin A1c 3.9 % (4.0-6.0) L 05/21/22 04:26 Calculated Osmolality 280 mOsm/kg (285-295) L 05/23/22 03:30 Calcium 8.7 mg/dL (8.5-10.5) 05/23/22 03:30 Iron 32 ug/dL (59-158) L 05/20/22 03:45 TIBC 248 mcg/dl 05/20/22 03:45 % Saturation 12.9 % (20-50) L 05/20/22 03:45 Unsat Iron Binding 216 ug/dL (112-347) 05/20/22 03:45 Total Bilirubin 0.6 mg/dL (0.15-1.2) 05/23/22 03:30 AST 16 U/L (0-40) 05/23/22 03:30 ALT 11 U/L (0-41) 05/23/22 03:30 Alkaline Phosphatase 62 U/L (40-130) 05/23/22 03:30 C-Reactive Protein 54.8 mg/L (0.0-4.9) H 05/19/22 17:26 Total Protein 6.0 g/dL (6.6-8.7) L 05/23/22 03:30 Albumin 3.3 g/dL (3.5-5.2) L 05/23/22 03:30 Globulin 2.7 g/dL (1.3-4.6) 05/23/22 03:30 Triglycerides 103 mg/dL (0-150) 05/21/22 04:26 Cholesterol 150 mg/dL (0-200) 05/21/22 04:26 LDL Cholesterol, Calc 83 mg/dL (50-129) 05/21/22 04:26 Total VLDL Cholesterol 21 mg/dL (0-30) 05/21/22 04:26 HDL Cholesterol 46 mg/dL (60-100) L 05/21/22 04:26 Cholesterol/HDL Ratio 3.26 mg/dL (1.0-5.00) 05/21/22 04:26 Lipase 27 U/L (13-60) 05/19/22 17:26 Vitamin B12 429 pg/mL (232-1245) 05/20/22 03:45 Folate 9.3 ng/mL (4.5-32.2) 05/20/22 14:10 TSH 3.41 uIU/mL (0.27-4.20) 05/20/22 03:45 Urine Color Dark yellow (Yellow) 05/19/22 17:10 Urine Appearance Clear (CLEAR) 05/19/22 17:10 Urine pH 8 (5-7) H 05/19/22 17:10 Ur Specific [place] 1.010 (1.005-1.030) 05/19/22 17:10 Urine Protein Neg (Negative) 05/19/22 17:10 Urine Glucose (UA) Norm (Normal) 05/19/22 17:10 Urine Ketones Negative (Negative) 05/19/22 17:10 Urine Blood Neg (Negative) 05/19/22 17:10 Urine Nitrate Negative (Negative) 05/19/22 17:10 Urine Bilirubin Neg (Negative) 05/19/22 17:10 Urine Urobilinogen 1 mg/dL (Negative) H 05/19/22 17:10 Ur Leukocyte Esterase Negative (Negative) 05/19/22 17:10 GABRIELLA-1 Antibody <1.0 neg AI (<1.0 NEG) 05/20/22 14:10 SS-A/Ro IgG Antibody <1.0 neg AI (<1.0 NEG) 05/20/22 14:10 SS-B/La IgG Antibody <1.0 neg AI (<1.0 NEG) 05/20/22 14:10 Anti-nRNP/Sm IgG Ab <1.0 neg AI (<1.0 NEG) 05/20/22 14:10 Scl-70 Scleroderma Ab <1.0 neg AI (<1.0 NEG) 05/20/22 14:10 Anti-ds DNA IgG Ab <1 IU/mL 05/20/22 14:10 Vitals Last Vital Signs Temp 98.2 F 05/24/22 08:00 Pulse 51 L 05/24/22 08:00 Resp 10 L 05/24/22 08:00 BP 107/51 05/24/22 08:00 Pulse Ox 99 05/23/22 16:00 O2 Del Method 05/24/22 08:00 Discharge Plan Discharge Patient Disposition: Home Condition: Stable Prescriptions: New Thera 400 mcg Tablet 1 tab PO DAILY Qty: 30 0RF Augmentin 500-125 mg tablet 1 tab PO Q8H 10 Days Qty: 30 0RF Continued spironolactone 25 mg Tablet 25 mg PO DAILY Discharge Orders: Discharge Order (Routine); Ordered 05/24/22 Ordered By: Zaheer Alanis Referrals: French Kwan MD [Primary Care Provider] - 1 week (appointment scheduled : Friday , June 05, 2022 at time of 09:45 am ) Lora Marion MD [Physician] - 2 months (This appointment has been scheduled : July ,time of 11:15 am ) Discharge Diet: Full LIquid Discharge Activity: Resume usual activity Patient Instructions: Amoxicillin/Clavulanate Potassium (By mouth) (Augmentin, Augmentin..., Multivitamins with Minerals (By mouth), Hypokalemia, Colitis (ED), Full Liquid Diet (DC), GI (Gastrointestinal) Soft Diet (DC), Opioid Safety Activity Restrictions/Additional Instructions: Continue full liquid diet for next 1 week and then advance to mechanical soft feeder Please follow-up with a primary care provider within next 2 weeks. You will need a colonoscopy in 6 to 8 weeks to rule out inflammatory bowel disease. Discharge Attestations Time Spent in Discharge Care*: greater than 30 min Specific Discharge Activities: educating patient, discussing with pcp/other providers, discussing with casework manager/social workers/dc planners, documenting/other paperwork and evaluating patient/reviewing data Status at Discharge: Cognitive status at discharge: cognitively intact, Behavioral status at discharge: cooperative, Functional status at discharge: independent ambulation, Overall status at discharge: patient is back to baseline Quality Metrics Clinical Quality Measures [ No reported AMI, CVA or VTE this stay] Coding Level of Care Code Acute Chg FW DC note Medical Decision Making High Complexity Diagnoses Bradycardia R00.1 Abscess of sigmoid colon K63.0 Colitis K52.9 Hypokalemic periodic paralysis G72.3 Alcohol abuse F10.10
[2022-05-24] MEDS: iohexol 350 mg/mL 500 mL Btl (per mL) IV (09:46)
--- NOTE | 2022-05-24 10:40 | P.PN_ITS ---
Subjective Subjective: He feels well and is ready to go home. Telemetry showed HR from high 30's to 90's at the time of exam. Intermittent junctional/low atrial beats. Medications: Reviewed: Yes Vitals/I&O/Wt Last Vital Signs Temp 98.2 F 05/24/22 08:00 Pulse 51 L 05/24/22 08:00 Resp 10 L 05/24/22 08:00 BP 107/51 05/24/22 08:00 Pulse Ox 99 05/23/22 16:00 O2 Del Method 05/24/22 08:00 05/23/22 05/24/22 05/24/22 22:59 06:59 14:59 Intake Total 750 / 1280 250 / 1530 286 / 286 Output Total 1250 / 1900 350 / 2250 300 / 300 Balance -500 / -620 -100 / -720 -14 / -14 Physical Exam Narrative: GENERAL: Averagely built and averagely nourished in no acute distress HEENT: Extraocular movement intact. No pallor or icterus. NECK: central trachea, No JVD, No carotid bruit. CARDIOVASCULAR SYSTEM: S1-S2 regular. No S3 or S4 present. No murmur rubs or gallops. RESPIRATORY SYSTEM: Chest clear to auscultation. No wheezes rhonchi or rubs heard. No use of accessory muscles. ABDOMEN: Soft, nontender and nondistended. Normal bowel sounds present. No hepatosplenomegaly appreciated. EXTREMITIES: No cyanosis or edema. No signs of chronic venous insufficiency. RESULTS ENGINEER: Patient is alert oriented ?3. No focal neurological deficits. SKIN: Normal turgor and temperature. PSYCH: Normal insight and judgment. Data : 05/21/22 04:26 05/23/22 03:30 A&P Assessment and plan (1) Bradycardia: Telemetry reviewed -normal echo -asymptomatic. -stable to be discharged home from cardiac standpoint. -follow up in 1-[address] [facility]. (2) Abscess of sigmoid colon: (3) Colitis: (4) Hypokalemic periodic paralysis: (5) Alcohol abuse: Attestations Medical Necessity Statement*: as per primary team Coding Level of Care Code Acute Drug Abuse Treatment Specialist for [facility] Fwd Diagnoses Bradycardia R00.1 Abscess of sigmoid colon K63.0 Colitis K52.9 Hypokalemic periodic paralysis G72.3 Alcohol abuse F10.10
[2022-05-24 12:36] VITALS: BP 109/50; PULSE 57; RESP 18; TEMP 36.9
--- NOTE | 2022-05-24 12:54 | PC.NURSE ---
Discharge Note Patient discharged to home via private vehicle accompanied by SO. Discharge instructions reviewed with patient and/or industrial sales representative. Mobile pharmacy medications and/or prescriptions provided. Belongings/home medications returned.
== END 2022-05-24 12:54 | disposition home or self-care (01) | DRG 392 ==
LOC: ER 20:08 → MEDSURG 20:44 → ICU 05-22 05:09
PROVIDERS: Student in an Organized Health Care Education/Training Program; Admitting Provider Student in an Organized Health Care Education/Training Program; Emergency Provider Emergency Medicine; PCP Internal Medicine; Visit Provider Student in an Organized Health Care Education/Training Program
DX: K52.9 Noninfective gastroenteritis and colitis, unspecified (principal); K63.0 Abscess of intestine; G72.3 Periodic paralysis; R00.1 Bradycardia, unspecified; F10.10 Alcohol abuse, uncomplicated; F17.290 Nicotine dependence, other tobacco product, uncomplicated; F17.220 Nicotine dependence, chewing tobacco, uncomplicated; Z87.19 Personal history of other diseases of the digestive system
CPT/HCPCS: 36415; 74177; 80053; 80061; 81003; 82607; 82746; 83036; 83540; 83550; 83690; 84132; 84443; 85025; 86140; 86225; 86235; 87493; 87506; 93005; 93306; 94640; 96365; 96372; 96375; 99285; J0610; J1650; J1885; J2270; J2405; J2543; J3411; J3480; J3490; J7030; J7042; J7613; Q9967